=== PATIENT | male | born 1995 | race African-American/Black ===

== ENCOUNTER 2018-01-20 20:54 | Emergency (ER) | payer OTHER ==
[2018-01-20 21:12] LABS: ADD MAN DIFF? NO
[2018-01-20 21:14] LABS: BASO % 1 % (0-3); EOS # 0.4 x10^3/uL (0.0-0.7); EOS % 7 % (0-3); HEMATOCRIT 39.1 % (39.0-53.0); HEMOGLOBIN 12.7 g/dL (13.0-17.5); LYMPH # 1.9 x10^3/uL (1.0-4.8); LYMPH % 37 % (24-48); MEAN CORPUSCULAR HEMOGLOBIN 25 pg (25-35); MEAN CORPUSCULAR HGB CONC 33 g/dL (31-37); MEAN CORPUSCULAR VOLUME 77 fL (79-100); MONO # 0.5 x10^3/uL (0.0-1.1); MONO % 10 % (0-9); NEUT # 2.4 x10^3uL (1.8-7.7); NEUT % 46 % (31-73); PLATELET COUNT 192 x10^3/uL (140-400); RED CELL DISTRIBUTION WIDTH 13.7 % (11.5-14.5); WHITE BLOOD COUNT 5.3 x10^3/uL (4.0-11.0)
[2018-01-20 21:25] LABS: ANION GAP 11 (6-14); BLOOD UREA NITROGEN 24 mg/dL (8-26); BUN/CREATININE RATIO 22 (6-20); CARBON DIOXIDE 26 mmol/L (21-32); CHLORIDE 103 mmol/L (98-107); CREATININE 1.1 mg/dL (0.7-1.3); GFR 101.3; GLUCOSE 102 mg/dL (70-99); POTASSIUM 3.4 mmol/L (3.5-5.1); SODIUM 140 mmol/L (136-145)
[2018-01-20 21:27] LABS: ETHANOL < 10 mg/dL (0-10)
[2018-01-20 21:31] LABS: ALBUMIN 4.2 g/dL (3.4-5.0); ALBUMIN/GLOBULIN RATIO 1.1 (1.0-1.7); ALK PHOS 97 U/L (46-116); ALT (SGPT) 24 U/L (16-63); AST (SGOT) 21 U/L (15-37); TOTAL BILIRUBIN 0.3 mg/dL (0.2-1.0); TOTAL PROTEIN 7.9 g/dL (6.4-8.2)
[2018-01-20 23:08] LABS: BARBITURATES NEG (NEG); BENZODIAZEPINES NEG (NEG); CANNABINOIDS NEG (NEG); COCAINE NEG (NEG); METHADONE NEG (NEG); OPIATES NEG (NEG); PHENCYCLIDINE NEG (NEG)
[2018-01-20 23:09] LABS: AMPHETAMINE/METHAMPHETAMINE NEG (NEG); ETHANOL, URINE NEG (NEG)
== END 2018-01-20 23:45 | disposition home or self-care (01) ==
LOC: ER 20:54
DX: S41.152A Open bite of left upper arm, initial encounter (principal); S09.90XA Unspecified injury of head, initial encounter; F31.9 Bipolar disorder, unspecified; F20.9 Schizophrenia, unspecified; F90.9 Attention-deficit hyperactivity disorder, unspecified type; W50.3XXA Accidental bite by another person, initial encounter; Y93.89 Activity, other specified; Y99.8 Other external cause status; Y92.89 Other specified places as the place of occurrence of the external cause
CPT/HCPCS: 36415; 51701; 70450; 72125; 80053; 80307; 85025; 99285-25; G0480

== ENCOUNTER 2019-08-12 14:30 | Emergency (ER) | payer OTHER ==
[~2019-08-12] VITALS: Ht 180.3 cm; Wt 100.0 kg
[~2019-08-12 14:30] MED LIST: AMOX1TAB61 PO
[2019-08-12] MEDS ORDERED: NEOMY/BACITR/POLYMYXIN OINT PACKET. TP ONE (14:45)
[2019-08-12] MEDS ORDERED: FAMOTIDINE 20 MG/2 ML VIAL IVP ONE (14:45)
[2019-08-12] MEDS ORDERED: IV NORMAL SALINE 1000ML BAG 1,000 ML IV ONE (14:45)
[2019-08-12 14:54] LABS: BASO % 0 % (0-3); EOS % 0 % (0-3); HEMOGLOBIN 13.6 g/dL (13.0-17.5); LYMPH % 13 % (24-48); MEAN CORPUSCULAR HEMOGLOBIN 25 pg (25-35); MEAN CORPUSCULAR HGB CONC 32 g/dL (31-37); MEAN CORPUSCULAR VOLUME 78 fL (79-100); MONO # 0.5 x10^3/uL (0.0-1.1); MONO % 7 % (0-9); NEUT % 79 % (31-73); PLATELET COUNT 215 x10^3/uL (140-400); RED BLOOD COUNT 5.51 x10^6/uL (4.30-5.70); RED CELL DISTRIBUTION WIDTH 14.6 % (11.5-14.5); WHITE BLOOD COUNT 7.6 x10^3/uL (4.0-11.0)
[2019-08-12 15:04] LABS: PROTHROMBIN TIME PATIENT 13.2 SEC (11.7-14.0)
--- NOTE | 2019-08-12 15:05 | PHYS DOC ---
Past Medical History Past Medical History: Asthma, Bipolar, Depression, Schizophrenia, Other Additional Past Medical Histor: ADHD, Suicidal ideation, Hallucintations, Ingestion of foreign objects Past Surgical History: Other Additional Past Surgical Histo: EGD to remove spoon Additional Information: Nonsmoker Alcohol Use: None Drug Use: None Adult General Chief Complaint Chief Complaint: HEAD INJURY/TRAUMA HPI HPI 24-year-old male presents via EMS from [facility] with report that patient swallowed multiple screws from wall outlet and began to hit his head against cell wall prior to arrival at approximately 1330. Patient reports he was trying to harm himself. Reports he hears voices that tell him to harm himself. Reports history of prior ingestion of foreign object approximately 1 year ago to harm himself for which he was seen and treated at . EMS reports medical personnel at correction facility noted patient had a "60 sec" seizure like activity and "spit up some blood". Correctional facility RN reported to EMS that patient is "highly volatile". Review of Systems Review of Systems Constitutional: Denies fever or chills Eyes: Denies redness or eye pain HENT: Reports head contusion and epistaxis Respiratory: Denies cough or shortness of breath Cardiovascular: Denies chest pain or palpitations GI: Denies abdominal pain; reports vomiting Musculoskeletal: Denies back pain or neck pain Integument: Reports head contusion and abrasion Neurologic: Reports headache; denies focal weakness or sensory changes Psychiatric: Reports suicidal ideation and hallucinations Complete systems were reviewed and found to be within normal limits, except as documented in this note. Current Medications Current Medications Current Medications Medications (Trade) Dose Ordered Sig/Gil Start Time Stop Time Status Last Admin Dose Admin Famotidine (Pepcid Vial) 20 mg 1X ONCE 08/12/19 14:45 08/12/19 14:47 DC 08/12/19 15:17 20 MG Neomycin/ Polymyxin/ Bacitracin (Triple Antibiotic Ointment) 1 pkt 1X ONCE 08/12/19 14:45 08/12/19 14:49 DC 08/12/19 15:17 1 PKT Sodium Chloride 1,000 ml @ 1,000 mls/hr 1X ONCE 08/12/19 14:45 08/12/19 15:44 DC 08/12/19 15:17 1,000 MLS/HR Allergies Allergies Allergies Coded Allergies Type Severity Reaction Last Updated Verified No Known Drug Allergies 01/20/18 No Physical Exam Physical Exam Constitutional: Well developed, well nourished, no acute distress, non-toxic appearance HENT: Normocephalic, atraumatic, oropharynx moist, some dried blood noted to right nare, some old blood noted in pharynx Eyes: PERRL, EOMI, conjunctiva normal, no discharge Neck: Normal range of motion, no midline tenderness, supple Cardiovascular: Heart rate normal, regular rhythm Lungs & Thorax: Bilateral breath sounds clear to auscultation, no wheezing Abdomen: Soft, no tenderness, no guarding/rebound tenderness/distention Skin: Warm, dry, no erythema, forehead contusion and abrasion to midline forehead, no laceration Extremities: No tenderness, ROM intact, no edema Neurologic: Alert and oriented X 3, normal motor and sensory functions, no focal deficits noted Psychologic: Affect flat, judgment abnormal, reports suicidal ideation, and auditory hallucinations Current Patient Data Vital Signs Vital Signs Date Time Temp Pulse Resp B/P (MAP) Pulse Ox O2 Delivery O2 Flow Rate FiO2 08/12/19 16:42 84 123/76 (92) 99 Room Air 08/12/19 14:30 99.7 16 99.7 Lab Values Laboratory Tests Test 08/12/19 14:38 08/12/19 16:30 White Blood Count 7.6 x10^3/uL (4.0-11.0) Red Blood Count 5.51 x10^6/uL (4.30-5.70) Hemoglobin 13.6 g/dL (13.0-17.5) Hematocrit 43.0 % (39.0-53.0) Mean Corpuscular Volume 78 fL (79-100) L Mean Corpuscular Hemoglobin 25 pg (25-35) Mean Corpuscular Hemoglobin Concent 32 g/dL (31-37) Red Cell Distribution Width 14.6 % (11.5-14.5) H Platelet Count 215 x10^3/uL (140-400) Neutrophils (%) (Auto) 79 % (31-73) H Lymphocytes (%) (Auto) 13 % (24-48) L Monocytes (%) (Auto) 7 % (0-9) Eosinophils (%) (Auto) 0 % (0-3) Basophils (%) (Auto) 0 % (0-3) Neutrophils # (Auto) 6.0 x10^3/uL (1.8-7.7) Lymphocytes # (Auto) 1.0 x10^3/uL (1.0-4.8) Monocytes # (Auto) 0.5 x10^3/uL (0.0-1.1) Eosinophils # (Auto) 0.0 x10^3/uL (0.0-0.7) Basophils # (Auto) 0.0 x10^3/uL (0.0-0.2) Prothrombin Time 13.2 SEC (11.7-14.0) Prothrombin Time INR 1.0 (0.8-1.1) Activated Partial Thromboplast Time 26 SEC (24-38) Sodium Level 141 mmol/L (136-145) Potassium Level 4.1 mmol/L (3.5-5.1) Chloride Level 101 mmol/L (98-107) Carbon Dioxide Level 26 mmol/L (21-32) Anion Gap 14 (6-14) Blood Urea Nitrogen 9 mg/dL (8-26) Creatinine 1.0 mg/dL (0.7-1.3) Estimated GFR (Cockcroft-Gault) 111.1 BUN/Creatinine Ratio 9 (6-20) Glucose Level 97 mg/dL (70-99) Calcium Level 9.8 mg/dL (8.5-10.1) Magnesium Level 2.1 mg/dL (1.8-2.4) Total Bilirubin 0.4 mg/dL (0.2-1.0) Aspartate Amino Transferase (AST) 25 U/L (15-37) Alanine Aminotransferase (ALT) 24 U/L (16-63) Alkaline Phosphatase 118 U/L (46-116) H Total Protein 7.8 g/dL (6.4-8.2) Albumin 4.4 g/dL (3.4-5.0) Albumin/Globulin Ratio 1.3 (1.0-1.7) Salicylates Level < 2.8 mg/dL (2.8-20.0) L Salicylate Last Dose Date Unknown Salicylate Last Dose Time Unknown Acetaminophen Level < 2 mcg/ml (10-30) L Acetaminophen Last Dose Date Unknown Acetaminophen Last Dose Time Unknown Urine Collection Type Unknown Urine Color Yellow Urine Clarity Clear Urine pH 7.0 Urine Specific [place] 1.010 Urine Protein Negative mg/dL (NEG-TRACE) Urine Glucose (UA) Negative mg/dL (NEG) Urine Ketones (Stick) Negative mg/dL (NEG) Urine Blood Negative (NEG) Urine Nitrite Negative (NEG) Urine Bilirubin Negative (NEG) Urine Urobilinogen Dipstick 0.2 mg/dL (0.2 mg/dL) Urine Leukocyte Esterase Negative (NEG) Urine RBC 0 /HPF (0-2) Urine WBC 0 /HPF (0-4) Urine Bacteria 0 /HPF (0-FEW) Urine Opiates Screen Neg (NEG) Urine Methadone Screen Neg (NEG) Urine Barbiturates Neg (NEG) Urine Phencyclidine Screen Neg (NEG) Urine Amphetamine/Methamphetamine Neg (NEG) Urine Benzodiazepines Screen Neg (NEG) Urine Cocaine Screen Neg (NEG) Urine Cannabinoids Screen Neg (NEG) Urine Ethyl Alcohol Neg (NEG) Laboratory Tests 08/12/19 14:38 Laboratory Tests 08/12/19 14:38 EKG EKG [] Radiology/Procedures Radiology/Procedures PROCEDURE: CT HEAD W/O CONTRAST, CERVICAL SPINE W/O CONTRAST, & MAXILLOFACIAL WO CONTRAST CT head without contrast: Reason for examination: Status post head contusion. Self-harm. Pain. Axial images were obtained through the brain. No contrast was administered. Ventricular systems are symmetric and not dilated. No midline shift is seen. There is no evidence of intracranial hemorrhage, infarct, mass or edema. No abnormalities are seen at the orbits. The paranasal sinuses and mastoid air cells are clear. No acute abnormality seen in the skull. There is a left parietal convexity scalp hematoma. IMPRESSION: No acute intracranial abnormality evident. Scalp hematoma in the left parietal convexly. CT cervical spine without contrast: Helical images were obtained through the cervical spine from skull base through the thoracic apices with no contrast administered. Reconstruction was performed in sagittal and coronal planes. The C1 ring is intact. The odontoid process appears to be intact and normally centered between the lateral masses of C1. The cervical vertebral bodies are normally aligned anteriorly and posteriorly. No acute fracture or subluxation is seen. The posterior elements are intact. The intervertebral discs are maintained. There does appear to be some hypertrophic spurring anteriorly at the C5-6 level. Prevertebral soft tissues are normal. There is no significant spinal stenosis evident. IMPRESSION: No acute abnormality evident in the cervical spine. CT maxillofacial without contrast: Helical images were obtained through the maxillofacial structures with no contrast administered. Reconstruction was performed in sagittal and coronal planes. The paranasal sinuses and mastoid air cells are clear. Nasal bones are intact. Zygomatic arches are intact. The horn of the orbits and paranasal sinuses appear to be intact. There is some minimal mucosal thickening in the medial wall of the right maxillary antrum. The intraorbital structures are intact. No abnormalities of seen at the mandible or at the temporomandibular joints. There is some soft tissue injury in the midline frontal region. IMPRESSION: Soft tissue injury midline in the frontal region. No acute maxillofacial bony abnormalities evident. Small mucosal thickening in the medial wall the right maxillary antrum. Exposure: One or more of the following individualized dose reduction techniques were utilized for this examination: 1. Automated exposure control 2. Adjustment of the mA and/or kV according to patient size 3. Use of iterative reconstruction technique. Electronically signed by: Jany Gr MD (08/12/2019 4:07 PM) [id number] PROCEDURE: ACUTE ABDOMEN SERIES Acute abdominal series with PA chest portable at 1447: Reason for examination: Possibly swallowed screws for self-harm. The heart size is normal. Mediastinum is unremarkable. Lung terrell are clear. No acute bony abnormalities are seen in the chest. In the abdomen, there is no organomegaly. Psoas muscles are symmetric. The bowel gas pattern is nonspecific with no evidence of bowel obstruction. 3-D radiopaque foreign bodies are present in the abdomen consistent with threaded screws. These are likely present within the small intestinal tract. There is no evidence of free air. No abnormal calcifications are present. No acute bony abnormalities are seen. IMPRESSION: No acute cardiopulmonary disease. Nonspecific bowel gas pattern with no evidence of obstruction. 3 radiopaque foreign bodies consistent with screws present in the abdomen and likely within the small intestinal tract. No free air evident. Electronically signed by: Jany Gr MD (08/12/2019 3:06 PM) [id number] Course & Med Decision Making Course & Med Decision Making Pertinent Labs and Imaging studies reviewed. (See chart for details) Patient presents from correctional facility with report of auditory hallucinations that told him to harm himself. Patient reports he ingested several screws from wall outlet and hit his head on the side of his cell. Patient noted to have large hematoma and abrasion to midline upper forehead. Patient neurologically intact. No midline cervical spine tenderness appreciated. Patient does have some dried blood to right nose and some old blood in pharynx. Hx of "vomiting blood" likely from nosebleed. Abdomen non-peritoneal. Patient in handcuffs with [address] head/maxiofacial/cervical spine without acute process. AAS with notation of 3 retained blunt tipped screws in small bowel. No free air noted. Discussed case with Dr. Baltazar (GI). Dr. Baltazar in agreement that unlikely to cause any perforation or obstruction and can be discharged with repeat XR imaging in 1 week. Patient stable for discharge back to correctional facility on psychiatric unit. Discussed findings and plan with patient and long term guards, who acknowledge understanding and agreement. Dragon Disclaimer Dragon Disclaimer This electronic medical record was generated, in whole or in part, using a voice recognition dictation system. Departure Departure Impression: Primary Impression: Suicidal behavior with attempted self-injury Additional Impressions: Hallucination Ingestion of foreign body Head contusion Abrasion Disposition: 01 HOME, SELF-CARE (back to Correction facility) Condition: STABLE Referrals: NO PCP (PCP) DARLENE BALTAZAR MD Patient Instructions: Abrasion, [id number], Facial or Scalp Contusion, [id number], Hallucinations and Delusions, Suicidal Feelings, How to Help Yourself Additional Instructions: RECOMMEND: PLACEMENT TO PSYCHIATRIC UNIT OF CORRECTION FACILITY. PATIENT WILL REQUIRE REPEAT ABDOMINAL XRAY TO CONFIRM 3 METALLIC SCREWS HAVE PASSED Problem Qualifiers Additional Impressions: Ingestion of foreign body Encounter type: initial encounter Qualified Codes: T18.9XXA - Foreign body of alimentary tract, part unspecified, initial encounter Head contusion Encounter type: initial encounter Contusion of head detail: other part of head Qualified Codes: S00.83XA - Contusion of other part of head, initial encounter KEKE BIRCH DO Aug 12, 2019 15:05
[2019-08-12 15:08] LABS: ALBUMIN 4.4 g/dL (3.4-5.0); ALBUMIN/GLOBULIN RATIO 1.3 (1.0-1.7); CALCIUM 9.8 mg/dL (8.5-10.1); GFR 111.1; MAGNESIUM 2.1 mg/dL (1.8-2.4); POTASSIUM 4.1 mmol/L (3.5-5.1); TOTAL BILIRUBIN 0.4 mg/dL (0.2-1.0); TOTAL PROTEIN 7.8 g/dL (6.4-8.2)
--- NOTE | 2019-08-12 15:09 | RAD ---
Acute abdominal series with PA chest portable at 1447: Reason for examination: Possibly swallowed screws for self-harm. The heart size is normal. Mediastinum is unremarkable. Lung terrell are clear. No acute bony abnormalities are seen in the chest. In the abdomen, there is no organomegaly. Psoas muscles are symmetric. The bowel gas pattern is nonspecific with no evidence of bowel obstruction. 3-D radiopaque foreign bodies are present in the abdomen consistent with threaded screws. These are likely present within the small intestinal tract. There is no evidence of free air. No abnormal calcifications are present. No acute bony abnormalities are seen. IMPRESSION: No acute cardiopulmonary disease. Nonspecific bowel gas pattern with no evidence of obstruction. 3 radiopaque foreign bodies consistent with screws present in the abdomen and likely within the small intestinal tract. No free air evident. Electronically signed by: Jany Gr MD (08/12/2019 3:06 PM) [id number]
[2019-08-12 15:12] LABS: ACETAMIN < 2 mcg/ml (10-30); SALIC < 2.8 mg/dL (2.8-20.0)
--- NOTE | 2019-08-12 16:10 | RAD ---
CT head without contrast: Reason for examination: Status post head contusion. Self-harm. Pain. Axial images were obtained through the brain. No contrast was administered. Ventricular systems are symmetric and not dilated. No midline shift is seen. There is no evidence of intracranial hemorrhage, infarct, mass or edema. No abnormalities are seen at the orbits. The paranasal sinuses and mastoid air cells are clear. No acute abnormality seen in the skull. There is a left parietal convexity scalp hematoma. IMPRESSION: No acute intracranial abnormality evident. Scalp hematoma in the left parietal convexly. CT cervical spine without contrast: Helical images were obtained through the cervical spine from skull base through the thoracic apices with no contrast administered. Reconstruction was performed in sagittal and coronal planes. The C1 ring is intact. The odontoid process appears to be intact and normally centered between the lateral masses of C1. The cervical vertebral bodies are normally aligned anteriorly and posteriorly. No acute fracture or subluxation is seen. The posterior elements are intact. The intervertebral discs are maintained. There does appear to be some hypertrophic spurring anteriorly at the C5-6 level. Prevertebral soft tissues are normal. There is no significant spinal stenosis evident. IMPRESSION: No acute abnormality evident in the cervical spine. CT maxillofacial without contrast: Helical images were obtained through the maxillofacial structures with no contrast administered. Reconstruction was performed in sagittal and coronal planes. The paranasal sinuses and mastoid air cells are clear. Nasal bones are intact. Zygomatic arches are intact. The horn of the orbits and paranasal sinuses appear to be intact. There is some minimal mucosal thickening in the medial wall of the right maxillary antrum. The intraorbital structures are intact. No abnormalities of seen at the mandible or at the temporomandibular joints. There is some soft tissue injury in the midline frontal region. IMPRESSION: Soft tissue injury midline in the frontal region. No acute maxillofacial bony abnormalities evident. Small mucosal thickening in the medial wall the right maxillary antrum. Exposure: One or more of the following individualized dose reduction techniques were utilized for this examination: 1. Automated exposure control 2. Adjustment of the mA and/or kV according to patient size 3. Use of iterative reconstruction technique. Electronically signed by: Jany Gr MD (08/12/2019 4:07 PM) [id number]
[2019-08-12 16:42] VITALS: BP 123/76
[2019-08-12 16:45] LABS: BILIRUBIN,URINE NEGATIVE (NEG); COLOR,URINE YELLOW; NITRITE,URINE NEGATIVE (NEG); PROTEIN,URINE NEGATIVE (NEG-TRACE); UROBILINOGEN,URINE 0.2 mg/dL (0.2 mg/dL)
[2019-08-12 16:49] LABS: CLARITY,URINE CLEAR
[2019-08-12 16:50] LABS: BACTERIA,URINE 0 /HPF (0-FEW); RBC,URINE 0 /HPF (0-2); WBC,URINE 0 /HPF (0-4)
[2019-08-12 16:52] LABS: BARBITURATES NEG (NEG); BENZODIAZEPINES NEG (NEG); CANNABINOIDS NEG (NEG); COCAINE NEG (NEG); METHADONE NEG (NEG); OPIATES NEG (NEG); PHENCYCLIDINE NEG (NEG)
[2019-08-12 16:56] LABS: AMPHETAMINE/METHAMPHETAMINE NEG (NEG)
[2019-08-13] MEDS ORDERED: FLUO20CA16 PO (16:53)
[2019-08-13] MEDS ORDERED: OMEP20CA16 PO (16:53)
[2019-08-13] MEDS ORDERED: HALO10TA PO (16:53)
[2019-08-13] MEDS ORDERED: HALO100V IM (16:53)
[2019-08-13] MEDS ORDERED: DOCU-109 PO (16:53)
== END 2019-08-12 17:05 | disposition home or self-care (01) ==
LOC: EEVIPCON 14:30 → ER 14:30
DX: S00.83XA Contusion of other part of head, initial encounter (principal); T18.9XXA Foreign body of alimentary tract, part unspecified, initial encounter; R45.851 Suicidal ideations; R11.10 Vomiting, unspecified; J45.909 Unspecified asthma, uncomplicated; F32.9 Major depressive disorder, single episode, unspecified; F20.9 Schizophrenia, unspecified; Z98.890 Other specified postprocedural states; X83.8XXA Intentional self-harm by other specified means, initial encounter; Y93.89 Activity, other specified; Y92.89 Other specified places as the place of occurrence of the external cause; Y99.8 Other external cause status
CPT/HCPCS: 36415; 70450; 70486; 72125; 74022; 80053; 80307; 80329; 81001; 83735; 85025; 85610; 85730; 96361; 96374; 99285; J3490; J7030; G0480

== ENCOUNTER 2019-08-12 21:17 | Inpatient (IN) | payer OTHER ==
[~2019-08-12] VITALS: Ht 180.3 cm; Wt 91.2 kg
[2019-08-12 21:51] LABS: BASO % 0 % (0-3); EOS % 1 % (0-3); HEMOGLOBIN 12.7 g/dL (13.0-17.5); LYMPH # 1.6 x10^3/uL (1.0-4.8); LYMPH % 19 % (24-48); MEAN CORPUSCULAR HEMOGLOBIN 25 pg (25-35); MEAN CORPUSCULAR HGB CONC 32 g/dL (31-37); MEAN CORPUSCULAR VOLUME 78 fL (79-100); MONO # 0.7 x10^3/uL (0.0-1.1); MONO % 9 % (0-9); NEUT # 5.8 x10^3/uL (1.8-7.7); NEUT % 71 % (31-73); PLATELET COUNT 211 x10^3/uL (140-400); RED BLOOD COUNT 5.15 x10^6/uL (4.30-5.70); RED CELL DISTRIBUTION WIDTH 14.9 % (11.5-14.5); WHITE BLOOD COUNT 8.1 x10^3/uL (4.0-11.0)
[2019-08-12 22:00] LABS: PROTHROMBIN TIME PATIENT 13.9 SEC (11.7-14.0)
[2019-08-12] MEDS ORDERED: IV NORMAL SALINE 1000ML BAG 1,000 ML IV SCH (22:00)
[2019-08-12 22:01] LABS: CALCIUM 8.9 mg/dL (8.5-10.1); CREATININE 0.9 mg/dL (0.7-1.3); GFR 125.4; POTASSIUM 3.5 mmol/L (3.5-5.1)
--- NOTE | 2019-08-12 22:06 | PHYS DOC ---
Past Medical History Past Medical History: Asthma, Bipolar, Depression, Schizophrenia, Other Additional Past Medical Histor: ADHD, Suicidal ideation, Hallucintations, Ingestion of foreign objects Past Surgical History: Other Additional Past Surgical Histo: EGD to remove spoon Alcohol Use: None Drug Use: None Adult General Chief Complaint Chief Complaint: ABDOMINAL PAIN HPI HPI Patient is a 24 year old incarcerated male with history of his of schizophrenia, ADHD, asthma, bipolar, suicidal ideation and attempt, ingestion of foreign bodies who presents per EMS with with complaining of vomiting blood. Patient stated he swallowed 3 small metallic school at 1300 today and was seen in this emergency room and was discharged to police custody. Patient complaining of 6 episodes of vomiting dark blood and right upper quadrant abdominal pain. Patient states his last bowel movement was yesterday and denies dizziness, chest pain, shortness of breath. Review of Systems Review of Systems Constitutional: Denies fever or chills [] Eyes: Denies change in visual acuity, redness, or eye pain [] HENT: Denies nasal congestion or sore throat [] Respiratory: Denies cough or shortness of breath [] Cardiovascular: No additional information not addressed in HPI [] GI: Reports abdominal pain, nausea, vomiting, denies bloody stools or diarrhea [] : Denies dysuria or hematuria [] Musculoskeletal: Denies back pain or joint pain [] Integument: Denies rash or skin lesions [] Neurologic: Denies headache, focal weakness or sensory changes [] Endocrine: Denies polyuria or polydipsia [] All other systems were reviewed and found to be within normal limits, except as documented in this note. Current Medications Current Medications Current Medications Medications (Trade) Dose Ordered Sig/Gil Start Time Stop Time Status Last Admin Dose Admin Ondansetron HCl (Zofran) 4 mg PRN Q8HRS PRN 08/12/19 22:15 08/13/19 06:00 Sodium Chloride 1,000 ml @ 125 mls/hr Q8H 08/12/19 22:30 08/13/19 22:29 Allergies Allergies Allergies Coded Allergies Type Severity Reaction Last Updated Verified No Known Drug Allergies 01/20/18 No Physical Exam Physical Exam Constitutional: No acute distress, non-toxic appearance. [] HENT: Normocephalic, forehead old wound related to banging his head as a chronic problem Eyes: PERRLA, EOMI, conjunctiva normal, no discharge. [] Neck: Normal range of motion, no tenderness, supple, no stridor. [] Cardiovascular:Heart rate regular rhythm, no murmur [] Lungs & Thorax: Bilateral breath sounds clear to auscultation [] Abdomen: Bowel sounds normal, soft, no tenderness, no masses, no pulsatile masses. [] Skin: Warm, dry, no erythema, no rash. [] Back: No tenderness, no CVA tenderness. [] Extremities: No tenderness, no cyanosis, no clubbing, ROM intact, no edema. [] Neurologic: Alert and oriented X 3, normal motor function, normal sensory function, no focal deficits noted. [] Psychologic: Affect normal. Denies suicidal and homicidal ideation Current Patient Data Lab Values Laboratory Tests Test 08/12/19 21:35 White Blood Count 8.1 x10^3/uL (4.0-11.0) Red Blood Count 5.15 x10^6/uL (4.30-5.70) Hemoglobin 12.7 g/dL (13.0-17.5) L Hematocrit 40.0 % (39.0-53.0) Mean Corpuscular Volume 78 fL (79-100) L Mean Corpuscular Hemoglobin 25 pg (25-35) Mean Corpuscular Hemoglobin Concent 32 g/dL (31-37) Red Cell Distribution Width 14.9 % (11.5-14.5) H Platelet Count 211 x10^3/uL (140-400) Neutrophils (%) (Auto) 71 % (31-73) Lymphocytes (%) (Auto) 19 % (24-48) L Monocytes (%) (Auto) 9 % (0-9) Eosinophils (%) (Auto) 1 % (0-3) Basophils (%) (Auto) 0 % (0-3) Neutrophils # (Auto) 5.8 x10^3/uL (1.8-7.7) Lymphocytes # (Auto) 1.6 x10^3/uL (1.0-4.8) Monocytes # (Auto) 0.7 x10^3/uL (0.0-1.1) Eosinophils # (Auto) 0.0 x10^3/uL (0.0-0.7) Basophils # (Auto) 0.0 x10^3/uL (0.0-0.2) Prothrombin Time 13.9 SEC (11.7-14.0) Prothrombin Time INR 1.1 (0.8-1.1) Activated Partial Thromboplast Time 27 SEC (24-38) Sodium Level 142 mmol/L (136-145) Potassium Level 3.5 mmol/L (3.5-5.1) Chloride Level 104 mmol/L (98-107) Carbon Dioxide Level 27 mmol/L (21-32) Anion Gap 11 (6-14) Blood Urea Nitrogen 7 mg/dL (8-26) L Creatinine 0.9 mg/dL (0.7-1.3) Estimated GFR (Cockcroft-Gault) 125.4 BUN/Creatinine Ratio 8 (6-20) Glucose Level 103 mg/dL (70-99) H Calcium Level 8.9 mg/dL (8.5-10.1) Total Bilirubin 0.4 mg/dL (0.2-1.0) Aspartate Amino Transferase (AST) 22 U/L (15-37) Alanine Aminotransferase (ALT) 21 U/L (16-63) Alkaline Phosphatase 105 U/L (46-116) Total Protein 7.4 g/dL (6.4-8.2) Albumin 3.8 g/dL (3.4-5.0) Albumin/Globulin Ratio 1.1 (1.0-1.7) Lipase 105 U/L (73-393) Laboratory Tests 08/12/19 21:35 Laboratory Tests 08/12/19 21:35 EKG EKG [] Radiology/Procedures Radiology/Procedures [] Course & Med Decision Making Course & Med Decision Making Pertinent Labs reviewed. (See chart for details) Evaluation of patient in ER showed 24-year-old incarcerated male patient presented for the second time to emergency room after swallowed to be a small metallic screw and complaining of vomiting blood. Patient had unremarkable physical exam. Labs showed a small drop of hemoglobin from 13.6 to12.7. Patient did not have hematemesis in ER. On-call GI Dr. Maximiliano Giron was consulted at 2150 and recommended to admit patient and obtain daily x-ray of abdomen and keep patient NPO.Patient requiring admission for further evaluation and treatment. Discussed with Dr. Villar who is in agreement with admission. Discussed findings and plan with patient and family, who acknowledge understanding and agreement. Dragon Disclaimer Dragon Disclaimer This electronic medical record was generated, in whole or in part, using a voice recognition dictation system. Departure Departure Impression: Primary Impression: Swallowed foreign body Additional Impression: Nausea and vomiting Disposition: 09 ADMITTED INPATIENT (at 2205) Admitting Physician: DAGOBERTO (Dr. Villar accepted admission at 2219) Condition: STABLE Referrals: NO PCP (PCP) Problem Qualifiers Primary Impression: Swallowed foreign body Encounter type: initial encounter Qualified Codes: T18.9XXA - Foreign body of alimentary tract, part unspecified, initial encounter Additional Impression: Nausea and vomiting Vomiting type: unspecified Vomiting Intractability: non-intractable Qualified Codes: R11.2 - Nausea with vomiting, unspecified TRISHA ROSAS MD Aug 12, 2019 22:06
[2019-08-12 22:08] LABS: ALBUMIN 3.8 g/dL (3.4-5.0); ALBUMIN/GLOBULIN RATIO 1.1 (1.0-1.7); TOTAL BILIRUBIN 0.4 mg/dL (0.2-1.0); TOTAL PROTEIN 7.4 g/dL (6.4-8.2)
[2019-08-12] MEDS ORDERED: ONDANSETRON PF 4 MG/2 ML VIAL. IV PRN (22:15)
[2019-08-12] MEDS: IV NORMAL SALINE 1000ML BAG 1,000 ML IV SCH (23:45)
[2019-08-13 07:20] VITALS: BP 135/88
--- NOTE | 2019-08-13 09:40 | PDOC2 ---
GI CONSULT Reason For Consult: swallowed foreign body HPI: HPI: 24 y/o inmate to ER twice yesterday. Swallowed three screws because he was trying to kill himself, no longer feels this way. Imaging shows screws in small bowel. He reports he vomited red blood yesterday in the ER, then want back to facility and ate. First says no recurrent vomiting or bleeding, then says vomited red blood again after eating yesterday. Normal stool yesterday. Intermittent sharp RUQ pain. H/o GERD on omeprazole QD. Previous EGD @ [facility] last year to remove a plastic spork. Denies dysphagia, diarrhea, constipation, hematochezia, melena, change in appetite, and weight loss. No colonoscopy. No GB, liver, pancreas, or PUD history. Per nurse - guards told her he vomits a lot. No vomiting or bleeding since admission. PMH: PMH: per pt and chart: GERD, bipolar, depression, schizophrenia, ADHD, hallucinations, wrist and ankle fractures ROS: GEN: Denies fevers, chills, sweats HEENT: Denies blurred vision, sore throat CV: Denies chest pain RESP: Denies shortness of air, cough GI: Per HPI : Denies hematuria, dysuria ENDO: Denies weight changes NEURO: Denies confusion, dizziness MSK: Denies weakness, joint pain/swelling SKIN: Denies jaundice, pruritus Vitals: Vitals: Vital Signs Date Time Temp Pulse Resp B/P (MAP) Pulse Ox O2 Delivery O2 Flow Rate FiO2 08/13/19 09:30 Room Air 08/13/19 07:20 98.1 88 18 135/88 (104) 98 98.1 Labs: Labs: Laboratory Tests Test 08/12/19 21:35 White Blood Count 8.1 x10^3/uL (4.0-11.0) Red Blood Count 5.15 x10^6/uL (4.30-5.70) Hemoglobin 12.7 g/dL (13.0-17.5) Hematocrit 40.0 % (39.0-53.0) Mean Corpuscular Volume 78 fL (79-100) Mean Corpuscular Hemoglobin 25 pg (25-35) Mean Corpuscular Hemoglobin Concent 32 g/dL (31-37) Red Cell Distribution Width 14.9 % (11.5-14.5) Platelet Count 211 x10^3/uL (140-400) Neutrophils (%) (Auto) 71 % (31-73) Lymphocytes (%) (Auto) 19 % (24-48) Monocytes (%) (Auto) 9 % (0-9) Eosinophils (%) (Auto) 1 % (0-3) Basophils (%) (Auto) 0 % (0-3) Neutrophils # (Auto) 5.8 x10^3/uL (1.8-7.7) Lymphocytes # (Auto) 1.6 x10^3/uL (1.0-4.8) Monocytes # (Auto) 0.7 x10^3/uL (0.0-1.1) Eosinophils # (Auto) 0.0 x10^3/uL (0.0-0.7) Basophils # (Auto) 0.0 x10^3/uL (0.0-0.2) Prothrombin Time 13.9 SEC (11.7-14.0) Prothromb Time International Ratio 1.1 (0.8-1.1) Activated Partial Thromboplast Time 27 SEC (24-38) Sodium Level 142 mmol/L (136-145) Potassium Level 3.5 mmol/L (3.5-5.1) Chloride Level 104 mmol/L (98-107) Carbon Dioxide Level 27 mmol/L (21-32) Anion Gap 11 (6-14) Blood Urea Nitrogen 7 mg/dL (8-26) Creatinine 0.9 mg/dL (0.7-1.3) Estimated GFR (Cockcroft-Gault) 125.4 BUN/Creatinine Ratio 8 (6-20) Glucose Level 103 mg/dL (70-99) Calcium Level 8.9 mg/dL (8.5-10.1) Total Bilirubin 0.4 mg/dL (0.2-1.0) Aspartate Amino Transf (AST/SGOT) 22 U/L (15-37) Alanine Aminotransferase (ALT/SGPT) 21 U/L (16-63) Alkaline Phosphatase 105 U/L (46-116) Total Protein 7.4 g/dL (6.4-8.2) Albumin 3.8 g/dL (3.4-5.0) Albumin/Globulin Ratio 1.1 (1.0-1.7) Lipase 105 U/L (73-393) Allergies: Coded Allergies: No Known Drug Allergies (Unverified , 01/20/18) Medications: Current Medications Medications (Trade) Dose Ordered Sig/Gil Route PRN Reason Start Time Stop Time Status Last Admin Dose Admin Sodium Chloride 1,000 ml @ 1,000 mls/hr Q1H IV 08/12/19 22:00 08/12/19 22:59 DC 08/12/19 21:57 Sodium Chloride 1,000 ml @ 125 mls/hr Q8H IV 08/12/19 22:30 08/13/19 22:29 08/12/19 23:45 Imaging: Imaging: [facility] 08/12 IMPRESSION: No acute cardiopulmonary disease. Nonspecific bowel gas pattern with no evidence of obstruction. 3 radiopaque foreign bodies consistent with screws present in the abdomen and likely within the small intestinal tract. No free air evident. PE: GEN: NAD HEENT: Atraumatic, PERRL LUNGS: CTAB HEART: RRR ABD: NABS, S/ND/NT EXTREMITY: No edema SKIN: bandage on forehead NEURO/PSYCH: A & O 3 A/P: A/P: Swallowed foreign body, psych issues Hematemesis - slight Hgb drift when checked for second time yesterday - 12.7 - stable compared to labs in 2018, normal BUN (7) Microcytosis - chronic GERD CRC screen - average risk -- Screws in small bowel on yesterday's x-ray, [facility] pending today. D/w Dr. Giron - will ask surgery to follow. Monitor for bleeding, add PPI (IV for now), check iron studies. EDUARDO PARKER Aug 13, 2019 09:40
[2019-08-13] MEDS: PANTOPRAZOLE IV PUSH 40 MG VIAL. IVP SCH (10:02)
[2019-08-13] MEDS: IV NORMAL SALINE 1000ML BAG 1,000 ML IV SCH ×2 (10:02→16:22)
--- NOTE | 2019-08-13 10:50 | NUR ---
assumed care at 0930 from nurse on 5th floor (khoi). Dr. Orozco at bedside.when asked why he is here "i tried to kill myself" method--i swallowed 3 screws. " admission history completed. he is npo at this time. states he has pain in the epigastric area that radiated to mid abdominal area. they stated he voided prior to my arrival. he stated that he last vomited blood in the er earlier this am. iv fluids started at 125cc in the left antecubital area.
[2019-08-13 11:12] VITALS: BP 119/67
--- NOTE | 2019-08-13 11:54 | NUR ---
resting in bed. rubs epigastric and LUQ . states he is cramping. iv fluids continue.
--- NOTE | 2019-08-13 12:34 | NUR ---
resting in bed watching television; no longer rubbing abdomen
--- NOTE | 2019-08-13 12:44 | PDOC2 ---
CONSULT Date of Consult Date of Consult DATE: 08/13/19 TIME: 12:37 Reason for Consult Reason for Consult: ingestion of FB Referring Physician Referring Physician: Dr Giron Identification/Chief Complaint Chief Complaint swallowed screws Source Source: Chart review, Patient History of Present Illness Reason for Visit: Inmate brought in after Swallowed 3 screens, seen in ER twice, apparently returned when vomited blood. Report some pain to abdomen, currently no stool Past Medical History Pulmonary: Asthma Psych: Bipolar, Depression Past Surgical History Past Surgical History: No pertinent history Family History Family History: Other (noncontributory to current illness ) Social History No ALCOHOL: none Drugs: None Current Problem List Problem List Problems Medical Problems: (1) Nausea and vomiting Status: Acute Current Medications Current Medications Current Medications Sodium Chloride 1,000 ml @ 1,000 mls/hr Q1H IV Last administered on 08/12/19at 21:57; Start 08/12/19 at 22:00; Stop 08/12/19 at 22:59; Status DC Ondansetron HCl (Zofran) 4 mg PRN Q8HRS PRN IV NAUSEA/VOMITING 1ST CHOICE; St art 08/12/19 at 22:15; Stop 08/13/19 at 06:00; Status DC Sodium Chloride 1,000 ml @ 125 mls/hr Q8H IV Last administered on 08/13/19at 10:02; Start 08/12/19 at 22:30; Stop 08/13/19 at 22:29 Pantoprazole Sodium (PROTONIX VIAL for IV PUSH) 40 mg DAILYAC IVP Last administered on 08/13/19at 10:02; Start 08/13/19 at 10:00 Active Scripts Active Augmentin 875-125 Tablet (Amoxicillin/Potassium Clav) 1 Each Tablet 1 Tab PO BID Allergies Allergies: Coded Allergies: adhesive (Verified Allergy, Intermediate, Rash, 08/13/19) ROS General: No: Chills, Other (fevers ) PSYCHOLOGICAL ROS: YES: Anxiety, Depression Eyes: No Blurry vision, No Double vision HEENT: No: Heacaches, Sore Throat Hematological and Lymphatic: YES: Bleeding Problems; No: Blood Clots Respiratory: No: Cough, Shortness of breath Cardiovascular: No Chest Pain, No Palpitations Gastrointestinal: Yes Other (see hpi) Genitourinary: No Dysuria, No Hematuria Musculoskeletal: No Joint Pain Neurological: No Impaired Coord/balance, No Numbness/Tingling Skin: Yes Other (head wound ) Physical Exam General: Alert, Oriented X3, Cooperative HEENT: PERRLA, Other (dressing wound to forehead ) Lungs: Clear to auscultation, Normal air movement Heart: Regular rate, Normal S1, Normal S2 Abdomen: Soft, Other (epigastric TTP, ND, no peritoneal signs ) Extremities: No clubbing, No cyanosis Skin: No rashes, No breakdown Neuro: Normal gait, Normal speech Psych/Mental Status: Mental status NL, Mood NL MUSCULOSKELETAL: No deformity, No swelling Vitals VITALS Vital Signs Date Time Temp Pulse Resp B/P (MAP) Pulse Ox O2 Delivery O2 Flow Rate FiO2 08/13/19 11:12 97.8 76 16 119/67 (84) 92 Room Air 97.8 Labs Labs Laboratory Tests Test 08/12/19 21:35 08/13/19 11:25 White Blood Count 8.1 x10^3/uL (4.0-11.0) Red Blood Count 5.15 x10^6/uL (4.30-5.70) Hemoglobin 12.7 g/dL (13.0-17.5) Hematocrit 40.0 % (39.0-53.0) Mean Corpuscular Volume 78 fL (79-100) Mean Corpuscular Hemoglobin 25 pg (25-35) Mean Corpuscular Hemoglobin Concent 32 g/dL (31-37) Red Cell Distribution Width 14.9 % (11.5-14.5) Platelet Count 211 x10^3/uL (140-400) Neutrophils (%) (Auto) 71 % (31-73) Lymphocytes (%) (Auto) 19 % (24-48) Monocytes (%) (Auto) 9 % (0-9) Eosinophils (%) (Auto) 1 % (0-3) Basophils (%) (Auto) 0 % (0-3) Neutrophils # (Auto) 5.8 x10^3/uL (1.8-7.7) Lymphocytes # (Auto) 1.6 x10^3/uL (1.0-4.8) Monocytes # (Auto) 0.7 x10^3/uL (0.0-1.1) Eosinophils # (Auto) 0.0 x10^3/uL (0.0-0.7) Basophils # (Auto) 0.0 x10^3/uL (0.0-0.2) Prothrombin Time 13.9 SEC (11.7-14.0) Prothromb Time International Ratio 1.1 (0.8-1.1) Activated Partial Thromboplast Time 27 SEC (24-38) Sodium Level 142 mmol/L (136-145) Potassium Level 3.5 mmol/L (3.5-5.1) Chloride Level 104 mmol/L (98-107) Carbon Dioxide Level 27 mmol/L (21-32) Anion Gap 11 (6-14) Blood Urea Nitrogen 7 mg/dL (8-26) Creatinine 0.9 mg/dL (0.7-1.3) Estimated GFR (Cockcroft-Gault) 125.4 BUN/Creatinine Ratio 8 (6-20) Glucose Level 103 mg/dL (70-99) Calcium Level 8.9 mg/dL (8.5-10.1) Total Bilirubin 0.4 mg/dL (0.2-1.0) Aspartate Amino Transf (AST/SGOT) 22 U/L (15-37) Alanine Aminotransferase (ALT/SGPT) 21 U/L (16-63) Alkaline Phosphatase 105 U/L (46-116) Total Protein 7.4 g/dL (6.4-8.2) Albumin 3.8 g/dL (3.4-5.0) Albumin/Globulin Ratio 1.1 (1.0-1.7) Lipase 105 U/L (73-393) Iron Level 83 ug/dL (65-175) Total Iron Binding Capacity 259 ug/dL (250-450) Iron Saturation 32 % (15-34) Laboratory Tests Test 08/12/19 21:35 08/13/19 11:25 White Blood Count 8.1 x10^3/uL (4.0-11.0) Red Blood Count 5.15 x10^6/uL (4.30-5.70) Hemoglobin 12.7 g/dL (13.0-17.5) Hematocrit 40.0 % (39.0-53.0) Mean Corpuscular Volume 78 fL (79-100) Mean Corpuscular Hemoglobin 25 pg (25-35) Mean Corpuscular Hemoglobin Concent 32 g/dL (31-37) Red Cell Distribution Width 14.9 % (11.5-14.5) Platelet Count 211 x10^3/uL (140-400) Neutrophils (%) (Auto) 71 % (31-73) Lymphocytes (%) (Auto) 19 % (24-48) Monocytes (%) (Auto) 9 % (0-9) Eosinophils (%) (Auto) 1 % (0-3) Basophils (%) (Auto) 0 % (0-3) Neutrophils # (Auto) 5.8 x10^3/uL (1.8-7.7) Lymphocytes # (Auto) 1.6 x10^3/uL (1.0-4.8) Monocytes # (Auto) 0.7 x10^3/uL (0.0-1.1) Eosinophils # (Auto) 0.0 x10^3/uL (0.0-0.7) Basophils # (Auto) 0.0 x10^3/uL (0.0-0.2) Prothrombin Time 13.9 SEC (11.7-14.0) Prothromb Time International Ratio 1.1 (0.8-1.1) Activated Partial Thromboplast Time 27 SEC (24-38) Sodium Level 142 mmol/L (136-145) Potassium Level 3.5 mmol/L (3.5-5.1) Chloride Level 104 mmol/L (98-107) Carbon Dioxide Level 27 mmol/L (21-32) Anion Gap 11 (6-14) Blood Urea Nitrogen 7 mg/dL (8-26) Creatinine 0.9 mg/dL (0.7-1.3) Estimated GFR (Cockcroft-Gault) 125.4 BUN/Creatinine Ratio 8 (6-20) Glucose Level 103 mg/dL (70-99) Calcium Level 8.9 mg/dL (8.5-10.1) Total Bilirubin 0.4 mg/dL (0.2-1.0) Aspartate Amino Transf (AST/SGOT) 22 U/L (15-37) Alanine Aminotransferase (ALT/SGPT) 21 U/L (16-63) Alkaline Phosphatase 105 U/L (46-116) Total Protein 7.4 g/dL (6.4-8.2) Albumin 3.8 g/dL (3.4-5.0) Albumin/Globulin Ratio 1.1 (1.0-1.7) Lipase 105 U/L (73-393) Iron Level 83 ug/dL (65-175) Total Iron Binding Capacity 259 ug/dL (250-450) Iron Saturation 32 % (15-34) Assessment/Plan Assessment/Plan FB ingestion no surgical indications xray pending await to pass in stool JULIANA CASTREJON APRN Aug 13, 2019 12:44
--- NOTE | 2019-08-13 13:43 | PDOC1 ---
History and Physical Date of Admission Date of Admission DATE: 08/13/19 TIME: 13:21 Identification/Chief Complaint Chief Complaint swallowing 3 screws in attempted suicide Problems: (1) Swallowed foreign body (2) Nausea and vomiting Source Source: Chart review, Patient History of Present Illness History of Present Illness 24 y/o inmate who came to ED twice yesterday after swallowing three screws because he was trying to commit suicide, currently no plans to harm himself. review of imaging shows screws in small bowel. he reportedly vomited red blood yesterday in the ER, then want back to facility and ate. First says no recurrent vomiting or bleeding, then says vomited red blood again after eating yesterday. denies blood in stool. hx of GERD on PPI. had endoscopy at last year to remove pastic fork. no dysphagia, diarr, melena. no weight loss. no vomiting or bleeding since admission. Past Medical History Pulmonary: Asthma Psych: Bipolar, Depression Past Surgical History Past Surgical History: No pertinent history Family History Family History: Other (noncontributory to current illness ) Social History Smoke: No ALCOHOL: none Drugs: None Current Problem List Problem List Problems Medical Problems: (1) Nausea and vomiting Status: Acute Current Medications Current Medications Current Medications Sodium Chloride 1,000 ml @ 1,000 mls/hr Q1H IV Last administered on 08/12/19at 21:57; Start 08/12/19 at 22:00; Stop 08/12/19 at 22:59; Status DC Ondansetron HCl (Zofran) 4 mg PRN Q8HRS PRN IV NAUSEA/VOMITING 1ST CHOICE; Start 08/12/19 at 22:15; Stop 08/13/19 at 06:00; Status DC Sodium Chloride 1,000 ml @ 125 mls/hr Q8H IV Last administered on 08/13/19at 10:02; Start 08/12/19 at 22:30; Stop 08/13/19 at 22:29 Pantoprazole Sodium (PROTONIX VIAL for IV PUSH) 40 mg DAILYAC IVP Last administered on 08/13/19at 10:02; Start 08/13/19 at 10:00 Active Scripts Active Augmentin 875-125 Tablet (Amoxicillin/Potassium Clav) 1 Each Tablet 1 Tab PO BID Allergies Allergies: Coded Allergies: adhesive (Verified Allergy, Intermediate, Rash, 08/13/19) ROS Review of System CONSTITUTIONAL: No fever or chills EYES: No recent changes SKIN: No rash or itching CARDIOVASCULAR: No chest pain, syncope, palpitations, or edema RESPIRATORY: No SOB or cough GASTROINTESTINAL: No nausea, vomiting or abdominal pain NEUROLOGICAL: No headaches or weakness ENDOCRINE: No cold or heat intolerance GENITOURINARY: No urgency or frequency of urination MUSCULOSKELETAL: No back pain or joint pain LYMPHATICS: No enlarged lymph nodes PSYCHIATRIC: No anxiety or depression Physical Exam Physical Exam GENERAL: No apparent distress. Alert and oriented. HEENT: Head normocephalic, atraumatic. NECK: Supple LUNGS: Clear to auscultation. HEART: RRR, S1, S2 present, pulses intact ABDOMEN: Soft, positive bowel sounds. EXTREMITIES: No cyanosis or edema. NEUROLOGIC: Normal speech, normal tone PSYCHIATRIC: Normal affect, normal mood. SKIN: No ulceration. Vitals Vitals Vital Signs Date Time Temp Pulse Resp B/P (MAP) Pulse Ox O2 Delivery O2 Flow Rate FiO2 08/13/19 11:12 97.8 76 16 119/67 (84) 92 Room Air 97.8 Labs Labs Laboratory Tests Test 08/12/19 21:35 08/13/19 11:25 White Blood Count 8.1 x10^3/uL (4.0-11.0) Red Blood Count 5.15 x10^6/uL (4.30-5.70) Hemoglobin 12.7 g/dL (13.0-17.5) Hematocrit 40.0 % (39.0-53.0) Mean Corpuscular Volume 78 fL (79-100) Mean Corpuscular Hemoglobin 25 pg (25-35) Mean Corpuscular Hemoglobin Concent 32 g/dL (31-37) Red Cell Distribution Width 14.9 % (11.5-14.5) Platelet Count 211 x10^3/uL (140-400) Neutrophils (%) (Auto) 71 % (31-73) Lymphocytes (%) (Auto) 19 % (24-48) Monocytes (%) (Auto) 9 % (0-9) Eosinophils (%) (Auto) 1 % (0-3) Basophils (%) (Auto) 0 % (0-3) Neutrophils # (Auto) 5.8 x10^3/uL (1.8-7.7) Lymphocytes # (Auto) 1.6 x10^3/uL (1.0-4.8) Monocytes # (Auto) 0.7 x10^3/uL (0.0-1.1) Eosinophils # (Auto) 0.0 x10^3/uL (0.0-0.7) Basophils # (Auto) 0.0 x10^3/uL (0.0-0.2) Prothrombin Time 13.9 SEC (11.7-14.0) Prothromb Time International Ratio 1.1 (0.8-1.1) Activated Partial Thromboplast Time 27 SEC (24-38) Sodium Level 142 mmol/L (136-145) Potassium Level 3.5 mmol/L (3.5-5.1) Chloride Level 104 mmol/L (98-107) Carbon Dioxide Level 27 mmol/L (21-32) Anion Gap 11 (6-14) Blood Urea Nitrogen 7 mg/dL (8-26) Creatinine 0.9 mg/dL (0.7-1.3) Estimated GFR (Cockcroft-Gault) 125.4 BUN/Creatinine Ratio 8 (6-20) Glucose Level 103 mg/dL (70-99) Calcium Level 8.9 mg/dL (8.5-10.1) Total Bilirubin 0.4 mg/dL (0.2-1.0) Aspartate Amino Transf (AST/SGOT) 22 U/L (15-37) Alanine Aminotransferase (ALT/SGPT) 21 U/L (16-63) Alkaline Phosphatase 105 U/L (46-116) Total Protein 7.4 g/dL (6.4-8.2) Albumin 3.8 g/dL (3.4-5.0) Albumin/Globulin Ratio 1.1 (1.0-1.7) Lipase 105 U/L (73-393) Iron Level 83 ug/dL (65-175) Total Iron Binding Capacity 259 ug/dL (250-450) Iron Saturation 32 % (15-34) Laboratory Tests Test 08/12/19 21:35 08/13/19 11:25 White Blood Count 8.1 x10^3/uL (4.0-11.0) Red Blood Count 5.15 x10^6/uL (4.30-5.70) Hemoglobin 12.7 g/dL (13.0-17.5) Hematocrit 40.0 % (39.0-53.0) Mean Corpuscular Volume 78 fL (79-100) Mean Corpuscular Hemoglobin 25 pg (25-35) Mean Corpuscular Hemoglobin Concent 32 g/dL (31-37) Red Cell Distribution Width 14.9 % (11.5-14.5) Platelet Count 211 x10^3/uL (140-400) Neutrophils (%) (Auto) 71 % (31-73) Lymphocytes (%) (Auto) 19 % (24-48) Monocytes (%) (Auto) 9 % (0-9) Eosinophils (%) (Auto) 1 % (0-3) Basophils (%) (Auto) 0 % (0-3) Neutrophils # (Auto) 5.8 x10^3/uL (1.8-7.7) Lymphocytes # (Auto) 1.6 x10^3/uL (1.0-4.8) Monocytes # (Auto) 0.7 x10^3/uL (0.0-1.1) Eosinophils # (Auto) 0.0 x10^3/uL (0.0-0.7) Basophils # (Auto) 0.0 x10^3/uL (0.0-0.2) Prothrombin Time 13.9 SEC (11.7-14.0) Prothromb Time International Ratio 1.1 (0.8-1.1) Activated Partial Thromboplast Time 27 SEC (24-38) Sodium Level 142 mmol/L (136-145) Potassium Level 3.5 mmol/L (3.5-5.1) Chloride Level 104 mmol/L (98-107) Carbon Dioxide Level 27 mmol/L (21-32) Anion Gap 11 (6-14) Blood Urea Nitrogen 7 mg/dL (8-26) Creatinine 0.9 mg/dL (0.7-1.3) Estimated GFR (Cockcroft-Gault) 125.4 BUN/Creatinine Ratio 8 (6-20) Glucose Level 103 mg/dL (70-99) Calcium Level 8.9 mg/dL (8.5-10.1) Total Bilirubin 0.4 mg/dL (0.2-1.0) Aspartate Amino Transf (AST/SGOT) 22 U/L (15-37) Alanine Aminotransferase (ALT/SGPT) 21 U/L (16-63) Alkaline Phosphatase 105 U/L (46-116) Total Protein 7.4 g/dL (6.4-8.2) Albumin 3.8 g/dL (3.4-5.0) Albumin/Globulin Ratio 1.1 (1.0-1.7) Lipase 105 U/L (73-393) Iron Level 83 ug/dL (65-175) Total Iron Binding Capacity 259 ug/dL (250-450) Iron Saturation 32 % (15-34) VTE Prophylaxis Ordered VTE Prophylaxis Devices: Contraindicated (hemetemesis) VTE Pharmacological Prophylaxi: Yes Assessment/Plan Assessment/Plan assessment Intentional foreign body ingestion SI Hematemesis Microcyic Anemia GERD plan Screws in small bowel from initial xray, follow kub today GI consult no indication for colo check iron studies. gen sx consult anticipate dc ethel if improved Problem Qualifiers (1) Swallowed foreign body: Encounter type: initial encounter Qualified Codes: T18.9XXA - Foreign body of alimentary tract, part unspecified, initial encounter (2) Nausea and vomiting: Vomiting type: unspecified Vomiting Intractability: non-intractable Qualified Codes: R11.2 - Nausea with vomiting, unspecified VERONICA HANCOCK MD Aug 13, 2019 13:43
--- NOTE | 2019-08-13 14:15 | NUR ---
rests in bed. voided 650 cc clear yellow urine. iv continues at 125cc hr. remains npo. guard exchange.
[2019-08-13 15:00] VITALS: BP 124/78
--- NOTE | 2019-08-13 15:23 | NUR ---
resting in bed kub completed. remains npo
--- NOTE | 2019-08-13 16:49 | RAD ---
AP abdomen radiograph 08/13/2019 CLINICAL HISTORY: Recently ingested foreign bodies. An AP supine portable digital radiograph abdomen/pelvis was obtained. Comparison study is dated 08/12/2019. Two screws overlie the distal sigmoid colon/rectum. The third screw overlies the descending colon. No additional foreign body is seen. The abdominal bowel gas pattern is nonobstructive. The osseous structures are unchanged. IMPRESSION: The ingested screws are now seen in the region of the ascending colon and the distal sigmoid colon/rectum as discussed above. Electronically signed by: Hunter Thomas MD (08/13/2019 4:46 PM) [id number]
[2019-08-13] MEDS ORDERED: HALO10TA PO (16:53)
[2019-08-13] MEDS ORDERED: FLUO20CA16 PO (16:53)
[2019-08-13] MEDS ORDERED: OMEP20CA16 PO (16:53)
[2019-08-13] MEDS ORDERED: DOCU-109 PO (16:53)
[2019-08-13] MEDS ORDERED: HALO100V IM (16:53)
--- NOTE | 2019-08-13 18:02 | NUR ---
KELSIE has been calm and cooperative since my arrival. he has tolerated approx 60 cc ice chips. iv infusing in his left antecubital at 125cc. he has voided at least x3 times greater than 600cc each time. left leg remains shackled. continues to have 2 guards. has not rub his abdomen since late this afternoon. history completed. medications listed and placed in computer(copied from transfer sheet). he does not know if he has flu shot and sanchez not want it. unable to place [facility] as a pharmacy.
[2019-08-13 19:00] VITALS: BP 132/91
[2019-08-13 23:00] VITALS: BP 126/76
[2019-08-14 03:11] VITALS: BP 123/94
[2019-08-14 07:10] VITALS: BP 116/73
--- NOTE | 2019-08-14 08:22 | PDOC ---
JULIANA CASTREJON CONFLICT RESOLUTION PROFESSIONAL 08/14/19 0822: SURGICAL PROGRESS NOTE Subjective some abd pain, improved no n/v Vital Signs Vital Signs Date Time Temp Pulse Resp B/P (MAP) Pulse Ox O2 Delivery O2 Flow Rate FiO2 08/14/19 07:10 98.9 82 20 116/73 (87) 98 Room Air 98.9 I&O Intake and Output 08/14/19 07:00 Intake Total 1030 ml Output Total 2775 ml Balance -1745 ml Intake Oral 30 ml IV Total 1000 ml Output Urine Total 2775 ml General: Alert, Oriented X3, Cooperative Abdomen: Soft, No tenderness Labs Laboratory Tests Test 08/12/19 21:35 08/13/19 11:25 White Blood Count 8.1 x10^3/uL (4.0-11.0) Red Blood Count 5.15 x10^6/uL (4.30-5.70) Hemoglobin 12.7 g/dL (13.0-17.5) Hematocrit 40.0 % (39.0-53.0) Mean Corpuscular Volume 78 fL (79-100) Mean Corpuscular Hemoglobin 25 pg (25-35) Mean Corpuscular Hemoglobin Concent 32 g/dL (31-37) Red Cell Distribution Width 14.9 % (11.5-14.5) Platelet Count 211 x10^3/uL (140-400) Neutrophils (%) (Auto) 71 % (31-73) Lymphocytes (%) (Auto) 19 % (24-48) Monocytes (%) (Auto) 9 % (0-9) Eosinophils (%) (Auto) 1 % (0-3) Basophils (%) (Auto) 0 % (0-3) Neutrophils # (Auto) 5.8 x10^3/uL (1.8-7.7) Lymphocytes # (Auto) 1.6 x10^3/uL (1.0-4.8) Monocytes # (Auto) 0.7 x10^3/uL (0.0-1.1) Eosinophils # (Auto) 0.0 x10^3/uL (0.0-0.7) Basophils # (Auto) 0.0 x10^3/uL (0.0-0.2) Prothrombin Time 13.9 SEC (11.7-14.0) Prothromb Time International Ratio 1.1 (0.8-1.1) Activated Partial Thromboplast Time 27 SEC (24-38) Sodium Level 142 mmol/L (136-145) Potassium Level 3.5 mmol/L (3.5-5.1) Chloride Level 104 mmol/L (98-107) Carbon Dioxide Level 27 mmol/L (21-32) Anion Gap 11 (6-14) Blood Urea Nitrogen 7 mg/dL (8-26) Creatinine 0.9 mg/dL (0.7-1.3) Estimated GFR (Cockcroft-Gault) 125.4 BUN/Creatinine Ratio 8 (6-20) Glucose Level 103 mg/dL (70-99) Calcium Level 8.9 mg/dL (8.5-10.1) Total Bilirubin 0.4 mg/dL (0.2-1.0) Aspartate Amino Transf (AST/SGOT) 22 U/L (15-37) Alanine Aminotransferase (ALT/SGPT) 21 U/L (16-63) Alkaline Phosphatase 105 U/L (46-116) Total Protein 7.4 g/dL (6.4-8.2) Albumin 3.8 g/dL (3.4-5.0) Albumin/Globulin Ratio 1.1 (1.0-1.7) Lipase 105 U/L (73-393) Iron Level 83 ug/dL (65-175) Total Iron Binding Capacity 259 ug/dL (250-450) Iron Saturation 32 % (15-34) Laboratory Tests Test 08/13/19 11:25 Iron Level 83 ug/dL (65-175) Total Iron Binding Capacity 259 ug/dL (250-450) Iron Saturation 32 % (15-34) Problem List Problems Medical Problems: (1) Nausea and vomiting Status: Acute Assessment/Plan kub shows FB in colon--ok from surgical pov to advance diet should pass in stool no surgical needs, will sign off SAVI ROCHA MD 08/14/19 1006: SURGICAL PROGRESS NOTE Assessment/Plan Agree with above JULIANA CASTREJON APRN Aug 14, 2019 08:22 SAVI ROCHA MD Aug 14, 2019 10:06
[2019-08-14] MEDS: PANTOPRAZOLE IV PUSH 40 MG VIAL. IVP SCH (08:24)
--- NOTE | 2019-08-14 10:25 | PDOC ---
Subjective: Subjective: No bleeding, hasn't passed screws. Intermittent sharp RUQ pain. Wants to eat. Objective: Vital Signs: Vital Signs Date Time Temp Pulse Resp B/P (MAP) Pulse Ox O2 Delivery O2 Flow Rate FiO2 08/14/19 08:35 Room Air 08/14/19 07:10 98.9 82 20 116/73 (87) 98 98.9 Imaging: KUB 08/13 IMPRESSION: The ingested screws are now seen in the region of the ascending colon and the distal sigmoid colon/rectum as discussed above. PE: GEN: NAD LUNGS: CTAB HEART: RRR ABD: NABS, S/ND, RUQ discomfort NEURO/PSYCH: A & O 3 A/P: Swallowed foreign body Hematemesis - no recurrence Microcytosis - iron studies WNL GERD - on chronic PPI Psych issues -- Awaiting KUB. Hemodynamically unstable?: No Is patient in severe pain?: No Is NPO status required?: Yes EDUARDO PARKER Aug 14, 2019 10:25
[2019-08-14 11:13] VITALS: BP 120/73
--- NOTE | 2019-08-14 11:34 | PDOC ---
PROGRESS NOTES Chief Complaint Chief Complaint ASSESSMENT Intentional foreign body ingestion SI Hematemesis, RESOLVED Microcyic Anemia GERD plan Screws in small bowel from initial xray, follow REPEAT kub today GI consulted no indication for colo gen sx consulted anticipate dc today if cleared by psych and GI Vitals Vitals Vital Signs Date Time Temp Pulse Resp B/P (MAP) Pulse Ox O2 Delivery O2 Flow Rate FiO2 08/14/19 11:13 99.1 90 18 120/73 (89) 98 Room Air 99.1 Physical Exam General: Alert, Oriented X3, Cooperative Heart: Regular rate, Normal S1, Normal S2 Abdomen: Soft, No tenderness Extremities: No clubbing, No cyanosis Skin: No rashes, No breakdown Assessment and Plan Assessmemt and Plan Problems Medical Problems: (1) Nausea and vomiting Status: Acute Comment Review of Relevant I have reviewed the following items george (where applicable) has been applied. Labs Laboratory Tests Test 08/12/19 21:35 08/13/19 11:25 White Blood Count 8.1 x10^3/uL (4.0-11.0) Red Blood Count 5.15 x10^6/uL (4.30-5.70) Hemoglobin 12.7 g/dL (13.0-17.5) Hematocrit 40.0 % (39.0-53.0) Mean Corpuscular Volume 78 fL (79-100) Mean Corpuscular Hemoglobin 25 pg (25-35) Mean Corpuscular Hemoglobin Concent 32 g/dL (31-37) Red Cell Distribution Width 14.9 % (11.5-14.5) Platelet Count 211 x10^3/uL (140-400) Neutrophils (%) (Auto) 71 % (31-73) Lymphocytes (%) (Auto) 19 % (24-48) Monocytes (%) (Auto) 9 % (0-9) Eosinophils (%) (Auto) 1 % (0-3) Basophils (%) (Auto) 0 % (0-3) Neutrophils # (Auto) 5.8 x10^3/uL (1.8-7.7) Lymphocytes # (Auto) 1.6 x10^3/uL (1.0-4.8) Monocytes # (Auto) 0.7 x10^3/uL (0.0-1.1) Eosinophils # (Auto) 0.0 x10^3/uL (0.0-0.7) Basophils # (Auto) 0.0 x10^3/uL (0.0-0.2) Prothrombin Time 13.9 SEC (11.7-14.0) Prothromb Time International Ratio 1.1 (0.8-1.1) Activated Partial Thromboplast Time 27 SEC (24-38) Sodium Level 142 mmol/L (136-145) Potassium Level 3.5 mmol/L (3.5-5.1) Chloride Level 104 mmol/L (98-107) Carbon Dioxide Level 27 mmol/L (21-32) Anion Gap 11 (6-14) Blood Urea Nitrogen 7 mg/dL (8-26) Creatinine 0.9 mg/dL (0.7-1.3) Estimated GFR (Cockcroft-Gault) 125.4 BUN/Creatinine Ratio 8 (6-20) Glucose Level 103 mg/dL (70-99) Calcium Level 8.9 mg/dL (8.5-10.1) Total Bilirubin 0.4 mg/dL (0.2-1.0) Aspartate Amino Transf (AST/SGOT) 22 U/L (15-37) Alanine Aminotransferase (ALT/SGPT) 21 U/L (16-63) Alkaline Phosphatase 105 U/L (46-116) Total Protein 7.4 g/dL (6.4-8.2) Albumin 3.8 g/dL (3.4-5.0) Albumin/Globulin Ratio 1.1 (1.0-1.7) Lipase 105 U/L (73-393) Iron Level 83 ug/dL (65-175) Total Iron Binding Capacity 259 ug/dL (250-450) Iron Saturation 32 % (15-34) Medications Current Medications Sodium Chloride 1,000 ml @ 1,000 mls/hr Q1H IV Last administered on 08/12/19at 21:57; Start 08/12/19 at 22:00; Stop 08/12/19 at 22:59; Status DC Ondansetron HCl (Zofran) 4 mg PRN Q8HRS PRN IV NAUSEA/VOMITING 1ST CHOICE; Start 08/12/19 at 22:15; Stop 08/13/19 at 06:00; Status DC Sodium Chloride 1,000 ml @ 125 mls/hr Q8H IV Last administered on 08/13/19at 16:22; Start 08/12/19 at 22:30; Stop 08/13/19 at 22:29; Status DC Pantoprazole Sodium (PROTONIX VIAL for IV PUSH) 40 mg DAILYAC IVP Last administered on 08/14/19at 08:24; Start 08/13/19 at 10:00 Active Scripts Active Augmentin 875-125 Tablet (Amoxicillin/Potassium Clav) 1 Each Tablet 1 Tab PO BID Reported Prozac (Fluoxetine Hcl) 20 Mg Capsule 1 Cap PO HS Omeprazole 20 Mg Capsule.dr 1 Cap PO HS Haloperidol Decanoate 100 Mg/1 Ml Vial 0.75 Mg IM MONTHLY 180 Days Haloperidol 10 Mg Tablet 1 Tab PO PRN BID PRN Colace (Docusate Sodium) 100 Mg Capsule 1 Cap PO BID 30 Days Vitals/I & O Vital Sign - Last 24 Hours 08/13/19 08/13/19 08/13/19 08/13/19 15:00 19:00 20:00 23:00 Temp 98.8 98.4 98.3 98.8 98.4 98.3 Pulse 77 18 85 Resp 18 18 18 B/P (MAP) 124/78 (93) 132/91 (105) 126/76 (93) Pulse Ox 99 99 98 O2 Delivery Room Air Room Air Room Air Room Air 08/14/19 08/14/19 08/14/19 08/14/19 03:11 07:10 08:35 11:13 Temp 98.5 98.9 99.1 98.5 98.9 99.1 Pulse 79 82 90 Resp 18 20 18 B/P (MAP) 123/94 (104) 116/73 (87) 120/73 (89) Pulse Ox 98 98 98 O2 Delivery Room Air Room Air Room Air Room Air Intake and Output 08/13/19 08/13/19 08/14/19 15:00 23:00 07:00 Intake Total 30 ml 1000 ml Output Total 1650 ml 675 ml 450 ml Balance -1650 ml -645 ml 550 ml Hemodynamically unstable?: No Is patient in severe pain?: No Is NPO status required?: Yes VERONICA HANCOCK MD Aug 14, 2019 11:34
--- NOTE | 2019-08-14 14:51 | NUR ---
Wound Care Wound care consult for forehead wound. Pt has traumatic wound to forehead from hitting it on a window. Cleansed wound, packed with collagen and covered with 4x4 gauze and secured with kerlix. No other wounds noted on full skin inspection. WC will continue to follow for possible changes. Pt has 1:1 at bedside as well as 2 guards.
[2019-08-14 15:00] VITALS: BP 126/88
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
[2019-08-14] MEDS: FLUoxetine HCL 20 MG CAPSULE PO SCH (15:15)
--- NOTE | 2019-08-14 15:19 | NUR ---
Pt had episode of vomiting after eating tray of clear liquids. Pt had approx 500 mL of emesis in basin. Emesis had blood in it. Dr. Orozco notified. No orders received. Will continue to monitor pt closely.
--- NOTE | 2019-08-14 17:30 | RAD ---
PROCEDURE: KUB STUDY DATE: 08/14/2019 CLINICAL INDICATION / HISTORY: Foreign body evaluation. TECHNIQUE: Single AP image of the abdomen was obtained. COMPARISON: 08/13/2019 FINDINGS: 3 screws in the abdominal soft tissues remain present, one in the right upper quadrant abdomen, one in the mid left abdomen, and third overlying the sacrum in the midline. Bowel gas pattern is unremarkable. The osseous structures are within normal limits. No pathologic calcifications. IMPRESSION: Foreign bodies remain present in the abdominal soft tissues. They could be undergoing passage in the colon. Recommend follow-up. Electronically signed by: Erick Adames MD (08/14/2019 5:28 PM) [facility]
[2019-08-14 19:00] VITALS: BP 123/81
[2019-08-14] MEDS: HALOPERIDOL 5 MG TABLET. PO SCH (20:50)
[2019-08-14] MEDS ORDERED: ACETAMINOPHEN 325 MG TABLET. PO PRN (22:00)
[2019-08-14] MEDS ORDERED: DOCUSATE SODIUM 100 MG CAPSULE. PO PRN (22:00)
[2019-08-14 23:00] VITALS: BP 120/68
[2019-08-15] VITALS (13 sets, daily range): BP systolic 108–138; BP diastolic 60–83
[2019-08-15] MEDS: FLUoxetine HCL 20 MG CAPSULE PO SCH (07:42)
[2019-08-15] MEDS: HALOPERIDOL 5 MG TABLET. PO SCH ×2 (07:42→21:38)
[2019-08-15] MEDS: PANTOPRAZOLE IV PUSH 40 MG VIAL. IVP SCH ×2 (07:43→15:57)
[2019-08-15] MEDS: ONDANSETRON PF 4 MG/2 ML VIAL. IV PRN ×2 (07:43→21:56)
--- NOTE | 2019-08-15 09:14 | PDOC ---
Subjective: Subjective: "I keep throwing up blood." Objective: Objective: Per 1:1 nurse - gave pills with a sip of water, soon after vomited red blood. Another KUB ordered by primary. Vital Signs: Vital Signs Date Time Temp Pulse Resp B/P (MAP) Pulse Ox O2 Delivery O2 Flow Rate FiO2 08/15/19 07:36 Room Air 08/15/19 07:00 98.1 86 18 108/60 (76) 97 98.1 Imaging: KUB 08/14 IMPRESSION: Foreign bodies remain present in the abdominal soft tissues. They could be undergoing passage in the colon. Recommend follow-up. PE: GEN: NAD LUNGS: CTAB HEART: RRR ABD: RUQ tenderness, soft NEURO/PSYCH: A & O 3 A/P: Swallowed foreign body Hematemesis - recurred, has been on IV PPI -- Reviewed w/ Dr. Giron - EGD this morning. Await KUB. Hemodynamically unstable?: No Is patient in severe pain?: No Is NPO status required?: Yes EDUARDO PARKER Aug 15, 2019 09:14
[2019-08-15] MEDS ORDERED: IV RINGERS,LACTATED 1000ML 1,000 ML IV ONE (09:15)
[2019-08-15] MEDS ORDERED: LIDOCAINE 2% PF 5 ML VIAL. ONE (09:45)
[2019-08-15] MEDS ORDERED: PROPOFOL 20 ML IV ONE (09:45)
--- NOTE | 2019-08-15 09:58 | PDOC4 ---
PROCEDURE Procedure EGD Indication: hematemesis Meds: per anesthesia Findings: E--Healed reflux at GEJ. No M-W, varices, etc. G--Small amount retained liquid, suctioned. No foreign body, other lesions. No blood visualized. D--Normal to third portion. Again, no blood seen. --attempted inspection of oral cavity; not well seen, but no blood. Carmen. well. IMP: GERD Apparently factitious hematemesis; nasal/expectorated? No GI lesions to account for. REC: Resume diet. Continue PPI. F/u CHINO. KEKE PACE MD Aug 15, 2019 09:58
--- NOTE | 2019-08-15 13:27 | NUR ---
Patient had some clear liquids for lunch but vomited shortly after taking on broth and jello. Addendum: 08/15/19 at 1331 by MILA HAMM RN Small amount of blood in emesis on second time vomiting.
--- NOTE | 2019-08-15 13:52 | RAD ---
PROCEDURE: KUB STUDY DATE: 08/15/2019 CLINICAL INDICATION / HISTORY: Foreign body follow-up. TECHNIQUE: Single AP view of the abdomen was obtained. COMPARISON: 08/14/2019 and 08/13/2019 FINDINGS: 3 screws are still visible in the abdominal cavity the lowest appears to project over the rectal vault. The patient has a moderate to large amount of formed stool. Bowel gas pattern is otherwise unremarkable. No free air.. IMPRESSION: 3 screws remain present in the abdominal cavity and the patient could be constipated. There is no findings of bowel perforation. Electronically signed by: Erick Adames MD (08/15/2019 1:50 PM) [facility]
--- NOTE | 2019-08-15 14:53 | PDOC ---
PROGRESS NOTES Chief Complaint Chief Complaint ASSESSMENT Intentional foreign body ingestion Hematemesis Microcyic Anemia GERD bipolar mood disorder I, most recent episode depressed with psychotic features psychosis generalized anxiety disorder. PTSD plan Screws in small bowel from initial xray, follow serial xrays. xray 08/15: 3 screws remain present in the abdominal cavity and the patient could be constipated. There is no findings of bowel perforation. GI consulted. plan for scope today given hemetemsis psych consulted and med adjustments made. gen sx consulted follow h and H History of Present Illness History of Present Illness for EGD today. hemetemsis this AM Vitals Vitals Vital Signs Date Time Temp Pulse Resp B/P (MAP) Pulse Ox O2 Delivery O2 Flow Rate FiO2 08/15/19 13:50 77 119/77 (91) Room Air 08/15/19 13:20 18 08/15/19 11:20 97 08/15/19 10:30 97.9 97.9 Physical Exam General: Alert, Oriented X3, Cooperative Heart: Regular rate, Normal S1, Normal S2 Abdomen: Soft, No tenderness Extremities: No clubbing, No cyanosis Skin: No rashes, No breakdown Assessment and Plan Assessmemt and Plan Problems Medical Problems: (1) Nausea and vomiting Status: Acute Comment Review of Relevant I have reviewed the following items george (where applicable) has been applied. Medications Current Medications Sodium Chloride 1,000 ml @ 1,000 mls/hr Q1H IV Last administered on 08/12/19at 21:57; Start 08/12/19 at 22:00; Stop 08/12/19 at 22:59; Status DC Ondansetron HCl (Zofran) 4 mg PRN Q8HRS PRN IV NAUSEA/VOMITING 1ST CHOICE; Start 08/12/19 at 22:15; Stop 08/13/19 at 06:00; Status DC Sodium Chloride 1,000 ml @ 125 mls/hr Q8H IV Last administered on 08/13/19at 16:22; Start 08/12/19 at 22:30; Stop 08/13/19 at 22:29; Status DC Pantoprazole Sodium (PROTONIX VIAL for IV PUSH) 40 mg DAILYAC IVP Last a dministered on 08/15/19at 07:43; Start 08/13/19 at 10:00 Fluoxetine HCl (PROzac) 40 mg DAILY PO Last administered on 08/15/19 07:42; Start 08/14/19 at 15:15 Haloperidol (Haldol) 10 mg BID PO Last administered on 08/15/19 07:42; Start 08/14/19 at 21:00 Ondansetron HCl (Zofran) 4 mg PRN Q4HRS PRN IV NAUSEA/VOMITING 1ST CHOICE Last administered on 08/15/19 07:43; Start 08/14/19 at 22:00 Acetaminophen (Tylenol) 650 mg PRN Q4HRS PRN PO TEMP OVER 100.4F OR MILD PAIN Last administered on 08/14/19 22:11; Start 08/14/19 at 22:00 Docusate Sodium (Colace) 100 mg PRN BID PRN PO CONSTIPATION 1ST CHOICE Last administered on 08/15/19 07:42; Start 08/14/19 at 22:00 Ringer's Solution 1,000 ml @ 75 mls/hr 1X ONCE IV Last administered on 08/15/19 09:17; Start 08/15/19 at 09:15; Stop 08/15/19 at 22:34 Propofol 20 ml @ As Directed STK-MED ONCE IV ; Start 08/15/19 at 09:45; Stop 08/15/19 at 09:45; Status DC Lidocaine HCl (Lidocaine Pf 2% Vial) 5 ml STK-MED ONCE .ROUTE ; Start 08/15/19 at 09:45; Stop 08/15/19 at 09:45; Status DC Active Scripts Active Augmentin 875-125 Tablet (Amoxicillin/Potassium Clav) 1 Each Tablet 1 Tab PO BID Reported Prozac (Fluoxetine Hcl) 20 Mg Capsule 1 Cap PO HS Omeprazole 20 Mg Capsule.dr 1 Cap PO HS Haloperidol Decanoate 100 Mg/1 Ml Vial 0.75 Mg IM MONTHLY 180 Days Haloperidol 10 Mg Tablet 1 Tab PO PRN BID PRN Colace (Docusate Sodium) 100 Mg Capsule 1 Cap PO BID 30 Days Vitals/I & O Vital Sign - Last 24 Hours 08/14/19 08/14/19 08/14/19 08/15/19 15:00 19:00 23:00 03:00 Temp 98.9 97.9 98.5 97.9 98.9 97.9 98.5 97.9 Pulse 82 79 83 77 Resp 20 18 18 15 B/P (MAP) 126/88 (101) 123/81 (95) 120/68 (85) 108/63 (78) Pulse Ox 97 97 97 97 O2 Delivery Room Air Room Air Room Air Room Air 08/15/19 08/15/19 08/15/19 08/15/19 07:00 07:36 09:12 09:13 Temp 98.1 97.7 98.1 97.7 Pulse 86 89 Resp 18 20 B/P (MAP) 108/60 (76) Pulse Ox 97 98 O2 Delivery Room Air Room Air Room Air 08/15/19 08/15/19 08/15/19 08/15/19 09:55 10:10 10:20 10:30 Temp 98.4 97.9 98.4 97.9 Pulse 69 68 64 82 Resp 18 18 18 18 B/P (MAP) 82/42 111/66 116/72 138/83 (101) Pulse Ox 97 97 97 98 O2 Delivery Nasal Cannula Room Air Room Air Room Air 08/15/19 08/15/19 08/15/19 08/15/19 10:50 11:20 11:50 12:20 Pulse 71 69 81 68 Resp 18 16 18 18 B/P (MAP) 115/72 (86) 116/76 (89) 128/83 (98) 115/74 (88) Pulse Ox 97 97 O2 Delivery Room Air Room Air Room Air Room Air 08/15/19 08/15/19 08/15/19 12:50 13:20 13:50 Pulse 76 84 77 Resp 18 B/P (MAP) 123/78 (93) 118/76 (90) 119/77 (91) O2 Delivery Room Air Room Air Room Air Intake and Output 08/14/19 08/14/19 08/15/19 15:00 23:00 07:00 Intake Total 360 ml 390 ml 150 ml Output Total 1550 ml 1050 ml Balance -1190 ml -660 ml 150 ml Hemodynamically unstable?: No Is patient in severe pain?: No Is NPO status required?: Yes VERONICA HANCOCK MD Aug 15, 2019 14:53
[2019-08-15] MEDS ORDERED: MAGNESIUM CITRATE 296 ML SOLUTION. PO ONE (15:00)
--- NOTE | 2019-08-15 16:13 | NUR ---
Patient vomited about half of the mag-citrate he was drinking. No blood in emesis. Only about half of total dose had been ingested when he began to vomit.
[2019-08-15] MEDS: IV NORMAL SALINE 1000ML BAG 1,000 ML IV SCH (16:50)
--- NOTE | 2019-08-15 17:39 | PDOC ---
F/U PHYSCH PROG NOTE Subjective: He is an -[place] gentleman seen for routine follow-up. Previously, he was restarted on Prozac and Haldol. Today, he appears cooperative and interactive. States, he is feeling better, hallucinations are sporadic without any command. States, mood is somewhat relaxed and improved. States, he is having nausea having difficulty keeping things down. States, he vomited out his morning medications. Denies suicidal or homicidal thoughts intent or plan. Feeling safe, denies any violent intent. Denies auditory or visual hallucinations. States, he tolerated Haldol received last night. Sleep is okay. Denies overt depression or anxiety. Objective: Psychiatric review of system is positive for mild depression, anxiety. Negative for suicidal or homicidal thoughts, auditory or visual hallucinations. Vital Signs: Vital Signs Date Time Temp Pulse Resp B/P (MAP) Pulse Ox O2 Delivery O2 Flow Rate FiO2 08/15/19 15:00 97.9 76 117/79 (92) 96 Room Air 97.9 08/15/19 13:20 18 Labs: No recent labs. Medications: Current Medications Medications (Trade) Dose Ordered Sig/Gil Start Time Stop Time Status Last Admin Dose Admin Acetaminophen (Tylenol) 650 mg PRN Q4HRS PRN 08/14/19 22:00 08/14/19 22:11 650 MG Docusate Sodium (Colace) 100 mg PRN BID PRN 08/14/19 22:00 08/15/19 07:42 100 MG Fluoxetine HCl (PROzac) 40 mg DAILY 08/14/19 15:15 08/15/19 07:42 40 MG Haloperidol (Haldol) 10 mg BID 08/14/19 21:00 08/15/19 07:42 10 MG Lidocaine HCl (Lidocaine Pf 2% Vial) 5 ml STK-MED ONCE 08/15/19 09:45 08/15/19 09:45 DC Magnesium Citrate (Citroma) 296 ml 1X ONCE 08/15/19 15:00 08/15/19 15:04 DC 08/15/19 15:16 296 ML Ondansetron HCl (Zofran) 4 mg PRN Q4HRS PRN 08/14/19 22:00 08/15/19 07:43 4 MG Pantoprazole Sodium (PROTONIX VIAL for IV PUSH) 40 mg BIDAC 08/15/19 16:30 08/15/19 15:57 40 MG Propofol 20 ml @ As Directed STK-MED ONCE 08/15/19 09:45 08/15/19 09:45 DC Ringer's Solution 1,000 ml @ 75 mls/hr 1X ONCE 08/15/19 09:15 08/15/19 22:34 08/15/19 09:17 75 MLS/HR Sodium Chloride 1,000 ml @ 75 mls/hr [id number] 08/15/19 16:45 08/15/19 16:50 75 MLS/HR Physical Exam: Mental Status Exam: He is an -[place] gentleman appears his his stated age, well-nourished, fairly groomed. He is cooperative and interactive. He is alert and oriented. Speech is with regular rate and rhythm, normal tone and volume. Thought processes logical and goal-directed. He denies auditory or visual hallucinations. He denies suicidal or homicidal thoughts intent or plan. No abnormal delusions noted. Mood is improving, affect is constricted. Insight is fair, judgment is fair, concentration is improving. Memory is intact. Impulse c ontrol is fair Physical Exam: Refer to Physician's note. MOBILE MECHANIC: No focal deficit MSK: No EPS, TDK, or abnormal involuntary movements Diagnosis: 1bipolar mood disorder I, most recent episode depressed with psychotic features 2psychosis 3generalized anxiety disorder. 4PTSD Assessment: Young -[place] gentleman with substantial history of mental health challenges, struggling with worsening depression in context of bipolar mood disorder. Depression is likely precipitated by stress of current circumstances. Additionally, his hallucinations are also flared up secondary to stress. He received, 1 dose of Haldol 10 mg last night. He reports improvement in halluc inations and mood. Recommending to continue medications as prescribed. Recommending to start Haldol Decanoate outpatient. Plan: Plan: 1Continue Haldol PO 10 mg twice a day for psychosis and mood instability. Haldol decanoate is not available in pharmacy. 2Continue Prozac 40 mg daily for ongoing depressed mood and suicidality. 3In case of N&V Prozac solution may be tried. 4Psychoeducation provided to the patient. 5supportive psychotherapy provided. 6risk, benefits, alternatives of the treatment are discussed. He is in agreement with plan and voiced understanding. 7continue constant observation for safety. Thank you for the consult to involve in patient care. Please call Dr. Gordillo at [phone] with any concern ROSETTA GORDILLO MD Aug 15, 2019 17:39
--- NOTE | 2019-08-15 22:10 | NUR ---
Nursing note patient vomited twice with blood in emesis. Dr. Ordonez notified, orders given to check H&H and transfuse 1 unit PRBCs if hgb < 7. Patient's hgb is 13.6. Will continue to monitor.
[2019-08-15 22:50] LABS: HEMATOCRIT 42.5 % (39.0-53.0); HEMOGLOBIN 13.6 g/dL (13.0-17.5); RED BLOOD COUNT 5.47 x10^6/uL (4.30-5.70); RED CELL DISTRIBUTION WIDTH 14.4 % (11.5-14.5)
[2019-08-16 03:00] VITALS: BP 113/74
[2019-08-16] MEDS: IV NORMAL SALINE 1000ML BAG 1,000 ML IV SCH (05:26)
[2019-08-16 05:51] LABS: CALCIUM 9.3 mg/dL (8.5-10.1); CREATININE 0.9 mg/dL (0.7-1.3); GFR 125.4; POTASSIUM 3.7 mmol/L (3.5-5.1)
[2019-08-16 06:05] LABS: BASO % 0 % (0-3); EOS # 0.1 x10^3/uL (0.0-0.7); EOS % 2 % (0-3); HEMATOCRIT 41.2 % (39.0-53.0); HEMOGLOBIN 13.3 g/dL (13.0-17.5); LYMPH # 1.7 x10^3/uL (1.0-4.8); LYMPH % 24 % (24-48); MEAN CORPUSCULAR HEMOGLOBIN 25 pg (25-35); MEAN CORPUSCULAR HGB CONC 32 g/dL (31-37); MEAN CORPUSCULAR VOLUME 78 fL (79-100); MONO # 0.7 x10^3/uL (0.0-1.1); MONO % 9 % (0-9); NEUT # 4.5 x10^3/uL (1.8-7.7); NEUT % 65 % (31-73); PLATELET COUNT 213 x10^3/uL (140-400); RED BLOOD COUNT 5.29 x10^6/uL (4.30-5.70); RED CELL DISTRIBUTION WIDTH 14.5 % (11.5-14.5); WHITE BLOOD COUNT 6.9 x10^3/uL (4.0-11.0)
[2019-08-16 07:00] VITALS: BP 116/70
[2019-08-16] MEDS: PANTOPRAZOLE IV PUSH 40 MG VIAL. IVP SCH ×2 (08:40→16:25)
[2019-08-16] MEDS: FLUoxetine HCL 20 MG CAPSULE PO SCH (08:40)
[2019-08-16] MEDS: HALOPERIDOL 5 MG TABLET. PO SCH ×2 (08:43→22:19)
--- NOTE | 2019-08-16 10:27 | PDOC ---
PROGRESS NOTES Chief Complaint Chief Complaint ASSESSMENT Intentional foreign body ingestion Hematemesis, ongoing. Microcyic Anemia GERD bipolar mood disorder I, most recent episode depressed with psychotic features psychosis generalized anxiety disorder. PTSD plan Screws in small bowel from initial xray, follow serial xrays. xray 08/15: 3 screws remain present in the abdominal cavity and the patient could be constipated. There is no findings of bowel perforation. follow KUB today GI consulted. s/p EGD which was normal continue PPI therapy psych consulted and med adjustments made. haldol 10 mg PO BID, paroxitine 40 daily gen sx consulted GI consulted psych consulted Hem stable at 13 GES to evaluate ongoing emesis. from long-term History of Present Illness History of Present Illness plan for GES Vitals Vitals Vital Signs Date Time Temp Pulse Resp B/P (MAP) Pulse Ox O2 Delivery O2 Flow Rate FiO2 08/16/19 08:00 Room Air 08/16/19 07:00 98.1 80 18 116/70 (85) 96 98.1 Physical Exam General: Alert, Oriented X3, Cooperative Heart: Regular rate, Normal S1, Normal S2 Abdomen: Soft, No tenderness Extremities: No clubbing, No cyanosis Skin: No rashes, No breakdown Labs LABS Laboratory Tests Test 08/15/19 22:30 08/16/19 04:04 White Blood Count 6.0 x10^3/uL (4.0-11.0) 6.9 x10^3/uL (4.0-11.0) Red Blood Count 5.47 x10^6/uL (4.30-5.70) 5.29 x10^6/uL (4.30-5.70) Hemoglobin 13.6 g/dL (13.0-17.5) 13.3 g/dL (13.0-17.5) Hematocrit 42.5 % (39.0-53.0) 41.2 % (39.0-53.0) Mean Corpuscular Volume 78 fL (79-100) 78 fL (79-100) Mean Corpuscular Hemoglobin 25 pg (25-35) 25 pg (25-35) Mean Corpuscular Hemoglobin Concent 32 g/dL (31-37) 32 g/dL (31-37) Red Cell Distribution Width 14.4 % (11.5-14.5) 14.5 % (11.5-14.5) Platelet Count 214 x10^3/uL (140-400) 213 x10^3/uL (140-400) Neutrophils (%) (Auto) 65 % (31-73) Lymphocytes (%) (Auto) 24 % (24-48) Monocytes (%) (Auto) 9 % (0-9) Eosinophils (%) (Auto) 2 % (0-3) Basophils (%) (Auto) 0 % (0-3) Neutrophils # (Auto) 4.5 x10^3/uL (1.8-7.7) Lymphocytes # (Auto) 1.7 x10^3/uL (1.0-4.8) Monocytes # (Auto) 0.7 x10^3/uL (0.0-1.1) Eosinophils # (Auto) 0.1 x10^3/uL (0.0-0.7) Basophils # (Auto) 0.0 x10^3/uL (0.0-0.2) Sodium Level 142 mmol/L (136-145) Potassium Level 3.7 mmol/L (3.5-5.1) Chloride Level 103 mmol/L (98-107) Carbon Dioxide Level 26 mmol/L (21-32) Anion Gap 13 (6-14) Blood Urea Nitrogen 9 mg/dL (8-26) Creatinine 0.9 mg/dL (0.7-1.3) Estimated GFR (Cockcroft-Gault) 125.4 Glucose Level 93 mg/dL (70-99) Calcium Level 9.3 mg/dL (8.5-10.1) Assessment and Plan Assessmemt and Plan Problems Medical Problems: (1) Nausea and vomiting Status: Acute Comment Review of Relevant I have reviewed the following items geogre (where applicable) has been applied. Labs Laboratory Tests Test 08/15/19 22:30 08/16/19 04:04 White Blood Count 6.0 x10^3/uL (4.0-11.0) 6.9 x10^3/uL (4.0-11.0) Red Blood Count 5.47 x10^6/uL (4.30-5.70) 5.29 x10^6/uL (4.30-5.70) Hemoglobin 13.6 g/dL (13.0-17.5) 13.3 g/dL (13.0-17.5) Hematocrit 42.5 % (39.0-53.0) 41.2 % (39.0-53.0) Mean Corpuscular Volume 78 fL (79-100) 78 fL (79-100) Mean Corpuscular Hemoglobin 25 pg (25-35) 25 pg (25-35) Mean Corpuscular Hemoglobin Concent 32 g/dL (31-37) 32 g/dL (31-37) Red Cell Distribution Width 14.4 % (11.5-14.5) 14.5 % (11.5-14.5) Platelet Count 214 x10^3/uL (140-400) 213 x10^3/uL (140-400) Neutrophils (%) (Auto) 65 % (31-73) Lymphocytes (%) (Auto) 24 % (24-48) Monocytes (%) (Auto) 9 % (0-9) Eosinophils (%) (Auto) 2 % (0-3) Basophils (%) (Auto) 0 % (0-3) Neutrophils # (Auto) 4.5 x10^3/uL (1.8-7.7) Lymphocytes # (Auto) 1.7 x10^3/uL (1.0-4.8) Monocytes # (Auto) 0.7 x10^3/uL (0.0-1.1) Eosinophils # (Auto) 0.1 x10^3/uL (0.0-0.7) Basophils # (Auto) 0.0 x10^3/uL (0.0-0.2) Sodium Level 142 mmol/L (136-145) Potassium Level 3.7 mmol/L (3.5-5.1) Chloride Level 103 mmol/L (98-107) Carbon Dioxide Level 26 mmol/L (21-32) Anion Gap 13 (6-14) Blood Urea Nitrogen 9 mg/dL (8-26) Creatinine 0.9 mg/dL (0.7-1.3) Estimated GFR (Cockcroft-Gault) 125.4 Glucose Level 93 mg/dL (70-99) Calcium Level 9.3 mg/dL (8.5-10.1) Laboratory Tests Test 08/15/19 22:30 08/16/19 04:04 White Blood Count 6.0 x10^3/uL (4.0-11.0) 6.9 x10^3/uL (4.0-11.0) Red Blood Count 5.47 x10^6/uL (4.30-5.70) 5.29 x10^6/uL (4.30-5.70) Hemoglobin 13.6 g/dL (13.0-17.5) 13.3 g/dL (13.0-17.5) Hematocrit 42.5 % (39.0-53.0) 41.2 % (39.0-53.0) Mean Corpuscular Volume 78 fL (79-100) 78 fL (79-100) Mean Corpuscular Hemoglobin 25 pg (25-35) 25 pg (25-35) Mean Corpuscular Hemoglobin Concent 32 g/dL (31-37) 32 g/dL (31-37) Red Cell Distribution Width 14.4 % (11.5-14.5) 14.5 % (11.5-14.5) Platelet Count 214 x10^3/uL (140-400) 213 x10^3/uL (140-400) Neutrophils (%) (Auto) 65 % (31-73) Lymphocytes (%) (Auto) 24 % (24-48) Monocytes (%) (Auto) 9 % (0-9) Eosinophils (%) (Auto) 2 % (0-3) Basophils (%) (Auto) 0 % (0-3) Neutrophils # (Auto) 4.5 x10^3/uL (1.8-7.7) Lymphocytes # (Auto) 1.7 x10^3/uL (1.0-4.8) Monocytes # (Auto) 0.7 x10^3/uL (0.0-1.1) Eosinophils # (Auto) 0.1 x10^3/uL (0.0-0.7) Basophils # (Auto) 0.0 x10^3/uL (0.0-0.2) Sodium Level 142 mmol/L (136-145) Potassium Level 3.7 mmol/L (3.5-5.1) Chloride Level 103 mmol/L (98-107) Carbon Dioxide Level 26 mmol/L (21-32) Anion Gap 13 (6-14) Blood Urea Nitrogen 9 mg/dL (8-26) Creatinine 0.9 mg/dL (0.7-1.3) Estimated GFR (Cockcroft-Gault) 125.4 Glucose Level 93 mg/dL (70-99) Calcium Level 9.3 mg/dL (8.5-10.1) Medications Current Medications Sodium Chloride 1,000 ml @ 1,000 mls/hr Q1H IV Last administered on 08/12/19 21:57; Start 08/12/19 at 22:00; Stop 08/12/19 at 22:59; Status DC Ondansetron HCl (Zofran) 4 mg PRN Q8HRS PRN IV NAUSEA/VOMITING 1ST CHOICE; Start 08/12/19 at 22:15; Stop 08/13/19 at 06:00; Status DC Sodium Chloride 1,000 ml @ 125 mls/hr Q8H IV Last administered on 08/13/19at 16:22; Start 08/12/19 at 22:30; Stop 08/13/19 at 22:29; Status DC Pantoprazole Sodium (PROTONIX VIAL for IV PUSH) 40 mg DAILYAC IVP Last administered on 08/15/19 07:43; Start 08/13/19 at 10:00; Stop 08/15/19 at 14:55; Status DC Fluoxetine HCl (PROzac) 40 mg DAILY PO Last administered on 08/16/19 08:40; Start 08/14/19 at 15:15 Haloperidol (Haldol) 10 mg BID PO Last administered on 08/16/19 08:43; Start 08/14/19 at 21:00 Ondansetron HCl (Zofran) 4 mg PRN Q4HRS PRN IV NAUSEA/VOMITING 1ST CHOICE Last administered on 08/15/19 21:56; Start 08/14/19 at 22:00 Acetaminophen (Tylenol) 650 mg PRN Q4HRS PRN PO TEMP OVER 100.4F OR MILD PAIN Last administered on 08/14/19 22:11; Start 08/14/19 at 22:00 Docusate Sodium (Colace) 100 mg PRN BID PRN PO CONSTIPATION 1ST CHOICE Last administered on 08/15/19 07:42; Start 08/14/19 at 22:00 Ringer's Solution 1,000 ml @ 75 mls/hr 1X ONCE IV Last administered on 08/15/19at 09:17; Start 08/15/19 at 09:15; Stop 08/15/19 at 22:34; Status DC Propofol 20 ml @ As Directed STK-MED ONCE IV ; Start 08/15/19 at 09:45; Stop 08/15/19 at 09:45; Status DC Lidocaine HCl (Lidocaine Pf 2% Vial) 5 ml STK-MED ONCE .ROUTE ; Start 08/15/19 at 09:45; Stop 08/15/19 at 09:45; Status DC Pantoprazole Sodium (PROTONIX VIAL for IV PUSH) 40 mg BIDAC IVP Last administered on 08/16/19at 08:40; Start 08/15/19 at 16:30 Magnesium Citrate (Citroma) 296 ml 1X ONCE PO Last administered on 08/15/19at 15:16; Start 08/15/19 at 15:00; Stop 08/15/19 at 15:04; Status DC Sodium Chloride 1,000 ml @ 75 mls/hr [id number] IV Last administered on 08/16/19at 05:26; Start 08/15/19 at 16:45 Active Scripts Active Augmentin 875-125 Tablet (Amoxicillin/Potassium Clav) 1 Each Tablet 1 Tab PO BID Reported Prozac (Fluoxetine Hcl) 20 Mg Capsule 1 Cap PO HS Omeprazole 20 Mg Capsule. 1 Cap PO HS Haloperidol Decanoate 100 Mg/1 Ml Vial 0.75 Mg IM MONTHLY 180 Days Haloperidol 10 Mg Tablet 1 Tab PO PRN BID PRN Colace (Docusate Sodium) 100 Mg Capsule 1 Cap PO BID 30 Days Vitals/I & O Vital Sign - Last 24 Hours 08/15/19 08/15/19 08/15/19 08/15/19 10:30 10:50 11:20 11:50 Temp 97.9 97.9 Pulse 82 71 69 81 Resp 18 18 16 18 B/P (MAP) 138/83 (101) 115/72 (86) 116/76 (89) 128/83 (98) Pulse Ox 98 97 97 O2 Delivery Room Air Room Air Room Air Room Air 08/15/19 08/15/19 08/15/19 08/15/19 12:20 12:50 13:20 13:50 Pulse 68 76 84 77 Resp 18 18 B/P (MAP) 115/74 (88) 123/78 (93) 118/76 (90) 119/77 (91) O2 Delivery Room Air Room Air Room Air Room Air 08/15/19 08/15/19 08/15/19 08/15/19 15:00 19:00 20:00 23:00 Temp 97.9 98.8 98.1 97.9 98.8 98.1 Pulse 76 82 85 Resp 18 18 B/P (MAP) 117/79 (92) 119/80 (93) 109/79 (89) Pulse Ox 96 96 96 O2 Delivery Room Air Room Air 08/16/19 08/16/19 08/16/19 03:00 07:00 08:00 Temp 98.4 98.1 98.4 98.1 Pulse 87 80 Resp 18 18 B/P (MAP) 113/74 (87) 116/70 (85) Pulse Ox 97 96 O2 Delivery Room Air Room Air Intake and Output 08/15/19 08/15/19 08/16/19 15:00 23:00 07:00 Intake Total 720 ml 572 ml 220 ml Output Total 920 ml 780 ml 225 ml Balance -200 ml -208 ml -5 ml Hemodynamically unstable?: No Is patient in severe pain?: No Is NPO status required?: Yes VERONICA HANCOCK MD Aug 16, 2019 10:27
[2019-08-16 11:00] VITALS: BP 108/66
--- NOTE | 2019-08-16 11:34 | RAD ---
Nuclear medicine gastric emptying study. INDICATION: Recurrent nausea and vomiting. TECHNIQUE: 2 mCi of technetium labeled sulfa colloid radiopharmaceutical were administered and imaging of the stomach was performed. Technologist reports the patient vomited the radiopharmaceutical after the initial pictures were acquired, resulting in early termination of the study. FINDINGS: Radiopharmaceutical activity is present in the stomach on the immediate post ingestion images. Gastric emptying however was difficult to assess given the emetic event during the study. IMPRESSION: Incomplete exam with limited assessment of gastric emptying due to an emetic event. Electronically signed by: Erick Adames MD (08/16/2019 11:31 AM) [facility]
--- NOTE | 2019-08-16 11:41 | PDOC ---
Subjective: Subjective: Seen earlier this morning. Vomiting after clears - sometimes w/ blood. Tried Mag Citrate - vomited, didn't finish drinking. Has had vomiting for awhile - at least since previous scope at . No weight loss. Hasn't stooled. Objective: Vital Signs: Vital Signs Date Time Temp Pulse Resp B/P (MAP) Pulse Ox O2 Delivery O2 Flow Rate FiO2 08/16/19 11:00 98.1 86 18 108/66 (80) 96 Room Air 98.1 Labs: Laboratory Tests Test 08/15/19 22:30 08/16/19 04:04 White Blood Count 6.0 x10^3/uL 6.9 x10^3/uL Red Blood Count 5.47 x10^6/uL 5.29 x10^6/uL Hemoglobin 13.6 g/dL 13.3 g/dL Hematocrit 42.5 % 41.2 % Mean Corpuscular Volume 78 fL 78 fL Mean Corpuscular Hemoglobin 25 pg 25 pg Mean Corpuscular Hemoglobin Concent 32 g/dL 32 g/dL Red Cell Distribution Width 14.4 % 14.5 % Platelet Count 214 x10^3/uL 213 x10^3/uL Neutrophils (%) (Auto) 65 % Lymphocytes (%) (Auto) 24 % Monocytes (%) (Auto) 9 % Eosinophils (%) (Auto) 2 % Basophils (%) (Auto) 0 % Neutrophils # (Auto) 4.5 x10^3/uL Lymphocytes # (Auto) 1.7 x10^3/uL Monocytes # (Auto) 0.7 x10^3/uL Eosinophils # (Auto) 0.1 x10^3/uL Basophils # (Auto) 0.0 x10^3/uL Sodium Level 142 mmol/L Potassium Level 3.7 mmol/L Chloride Level 103 mmol/L Carbon Dioxide Level 26 mmol/L Anion Gap 13 Blood Urea Nitrogen 9 mg/dL Creatinine 0.9 mg/dL Estimated GFR (Cockcroft-Gault) 125.4 Glucose Level 93 mg/dL Calcium Level 9.3 mg/dL Imaging: GES 08/16 EGD 08/15 E--Healed reflux at [facility]. No M-W, varices, etc. G--Small amount retained liquid, suctioned. No foreign body, other lesions. No blood visualized. D--Normal to third portion. Again, no blood seen. --attempted inspection of oral cavity; not well seen, but no blood. IMP: GERD Apparently factitious hematemesis; nasal/expectorated? No GI lesions to account for. REC: Resume diet. Continue PPI. F/u KUB. KUB 08/15 IMPRESSION: 3 screws remain present in the abdominal cavity and the patient could be constipated. There is no findings of bowel perforation. Head CT 08/12 IMPRESSION: No acute intracranial abnormality evident. Scalp hematoma in the left parietal convexly. PE: GEN: NAD, bandage on head LUNGS: CTAB HEART: RRR ABD: mild discomfort RUQ NEURO/PSYCH: A & O 3 A/P: Swallowed foreign body, constipation - didn't tolerate Mag Citrate Hematemesis/chronic vomiting - on PPI (increased to BID yesterday), EGD unrevealing -- D/w Dr. Giron - check GES, consider Reglan. Since I have seen, nurse reports unable to complete GES due to vomiting eggs. Will try Reglan. Hemodynamically unstable?: No Is patient in severe pain?: No Is NPO status required?: No EDUARDO PARKER Aug 16, 2019 11:41
--- NOTE | 2019-08-16 13:02 | PDOC ---
F/U PHYSCH PROG NOTE Subjective: He is an -Bangl[place] gentleman seen for routine follow-up. Information is obtained from patient, patient's chart, and nursing staff. He is reportedly cooperative and interactive. No major event reported overnight. Reportedly, jemma leachg trouble keeping things down. However, he was able to take his medications. Aside from that, he reports mood is "good". Affect is euthymic. He is more open and conversant today. Denies suicidal or homicidal thoughts intent or plan. States, he wants to live. Denies auditory or visual hallucinations. No evidence of marina or hypomania. Denies overt depression or anxiety. Depression is rated as 3/10 10 is worse. Objective: Cooperative and interactive. Psychiatric review of system is positive for slight anxiety. Negative for overt depression, anxiety, suicidal or homicidal thoughts, and auditory or visual hallucinations. Vital Signs: Vital Signs Date Time Temp Pulse Resp B/P (MAP) Pulse Ox O2 Delivery O2 Flow Rate FiO2 08/16/19 11:00 98.1 86 18 108/66 (80) 96 Room Air 98.1 Labs: Laboratory Tests Test 08/15/19 22:30 08/16/19 04:04 White Blood Count 6.0 x10^3/uL (4.0-11.0) 6.9 x10^3/uL (4.0-11.0) Red Blood Count 5.47 x10^6/uL (4.30-5.70) 5.29 x10^6/uL (4.30-5.70) Hemoglobin 13.6 g/dL (13.0-17.5) 13.3 g/dL (13.0-17.5) Hematocrit 42.5 % (39.0-53.0) 41.2 % (39.0-53.0) Mean Corpuscular Volume 78 fL (79-100) L 78 fL (79-100) L Mean Corpuscular Hemoglobin 25 pg (25-35) 25 pg (25-35) Mean Corpuscular Hemoglobin Concent 32 g/dL (31-37) 32 g/dL (31-37) Red Cell Distribution Width 14.4 % (11.5-14.5) 14.5 % (11.5-14.5) Platelet Count 214 x10^3/uL (140-400) 213 x10^3/uL (140-400) Neutrophils (%) (Auto) 65 % (31-73) Lymphocytes (%) (Auto) 24 % (24-48) Monocytes (%) (Auto) 9 % (0-9) Eosinophils (%) (Auto) 2 % (0-3) Basophils (%) (Auto) 0 % (0-3) Neutrophils # (Auto) 4.5 x10^3/uL (1.8-7.7) Lymphocytes # (Auto) 1.7 x10^3/uL (1.0-4.8) Monocytes # (Auto) 0.7 x10^3/uL (0.0-1.1) Eosinophils # (Auto) 0.1 x10^3/uL (0.0-0.7) Basophils # (Auto) 0.0 x10^3/uL (0.0-0.2) Sodium Level 142 mmol/L (136-145) Potassium Level 3.7 mmol/L (3.5-5.1) Chloride Level 103 mmol/L (98-107) Carbon Dioxide Level 26 mmol/L (21-32) Anion Gap 13 (6-14) Blood Urea Nitrogen 9 mg/dL (8-26) Creatinine 0.9 mg/dL (0.7-1.3) Estimated GFR (Cockcroft-Gault) 125.4 Glucose Level 93 mg/dL (70-99) Calcium Level 9.3 mg/dL (8.5-10.1) Laboratory Tests 08/15/19 22:30 08/16/19 04:04 Laboratory Tests 08/16/19 04:04 Medications: Current Medications Medications (Trade) Dose Ordered Sig/Gil Start Time Stop Time Status Last Admin Dose Admin Acetaminophen (Tylenol) 650 mg PRN Q4HRS PRN 08/14/19 22:00 08/14/19 22:11 650 MG Docusate Sodium (Colace) 100 mg PRN BID PRN 08/14/19 22:00 08/15/19 07:42 100 MG Fluoxetine HCl (PROzac) 40 mg DAILY 08/14/19 15:15 08/16/19 08:40 40 MG Haloperidol (Haldol) 10 mg BID 08/14/19 21:00 08/16/19 08:43 10 MG Lidocaine HCl (Lidocaine Pf 2% Vial) 5 ml STK-MED ONCE 08/15/19 09:45 08/15/19 09:45 DC Magnesium Citrate (Citroma) 296 ml 1X ONCE 08/15/19 15:00 08/15/19 15:04 DC 08/15/19 15:16 296 ML Metoclopramide HCl (Reglan Vial) 5 mg QIDACHS 08/16/19 16:30 Ondansetron HCl (Zofran) 4 mg PRN Q4HRS PRN 08/14/19 22:00 08/15/19 21:56 4 MG Pantoprazole Sodium (PROTONIX VIAL for IV PUSH) 40 mg BIDAC 08/15/19 16:30 08/16/19 08:40 40 MG Propofol 20 ml @ As Directed STK-MED ONCE 08/15/19 09:45 08/15/19 09:45 DC Ringer's Solution 1,000 ml @ 75 mls/hr 1X ONCE 08/15/19 09:15 08/15/19 22:34 DC 08/15/19 09:17 75 MLS/HR Sodium Chloride 1,000 ml @ 75 mls/hr [id number] 08/15/19 16:45 08/16/19 05:26 75 MLS/HR Physical Exam: Mental Status Exam: -Bangladeshi gentleman appears his stated age, fairly groomed, fairly nourished, dressed in hospital gown. He is cooperative and interactive. He is fully alert and oriented. Speech is with regular rate and rhythm normal tone and volume. Thought process is logical and goal-directed. Denies auditory or visual hallucinations. Denies suicidal or homicidal thoughts intent or plan. No abnormal delusions noted. Mood is good affect is euthymic. Insight is fair, judgment is good, and concentration is improving. Memory is intact. Impulse control is good. Physical Exam: Refer to Physician's note. PAPER BUNDLER: No focal deficit MSK: No EPS, TDK, or abnormal involuntary movements Diagnosis: 1bipolar mood disorder I, most recent episode depressed with psychotic features 2psychosis 3generalized anxiety disorder. 4PTSD Assessment: -Bangladeshi gentleman with history of bipolar mood disorder, presently struggling with depression. He was restarted on Haldol 10 mg twice a day for hallucinations and Prozac was increased to 40 mg daily for ongoing depression. He has been put down his medications today. Overall, with respect to mental health, he is reporting improvement in mood and hallucinations. Recommending to continue medications as prescribed. Plan: 1continue Prozac 40 mg daily for depression. 2continue Haldol 10 mg twice a day for psychosis. 3psychoeducation provided. 4supportive psychotherapy provided. 5in case of discharge, patient to be continued on Prozac and Haldol as is. 6requesting outpatient provider to consider Haldol Decanoate for better medication compliance. Patient is in agreement. Please call Dr. Gordillo at [phone] with any concern. ROSETTA GORDILLO MD Aug 16, 2019 13:02
--- NOTE | 2019-08-16 13:40 | RAD ---
AP abdomen radiograph 08/16/2019 CLINICAL HISTORY: Foreign body follow-up. An AP portable supine digital radiograph of the abdomen/pelvis was obtained. The upper abdomen to include the lung bases are not included on this radiograph. The small screw within the proximal sigmoid colon seen on the previous study is not visualized and has presumably been passed. A screw is seen in the region of the distal sigmoid colon/proximal rectum. A screw is seen overlying the expected location of the ascending colon. The abdominal bowel gas pattern is nonobstructive. No radiopaque calculus is seen. The osseous structures are unchanged. IMPRESSION: One of the screws appears to have been passed as discussed above. A screw remains in the region of the distal sigmoid colon/rectum. An additional screw is seen in the region of the ascending colon. Electronically signed by: Hunter Thomas MD (08/16/2019 1:37 PM) [id number]
[2019-08-16 15:00] VITALS: BP 118/69
[2019-08-16] MEDS: METOCLOPRAMIDE HCL 10 MG/2 ML VIAL. IVP SCH ×2 (16:26→22:19)
[2019-08-16 19:00] VITALS: BP 131/82
[2019-08-16] MEDS ORDERED: HALOPERIDOL LACTATE 5 MG/ML VIAL. IVP PRN (19:15)
[2019-08-16 22:16] VITALS: BP 103/61
[2019-08-17] MEDS: IV NORMAL SALINE 1000ML BAG 1,000 ML IV SCH ×2 (00:20→10:10)
[2019-08-17 02:40] VITALS: BP 113/66
[2019-08-17 06:59] VITALS: BP 130/73
[2019-08-17] MEDS: HALOPERIDOL 5 MG TABLET. PO SCH (10:08)
[2019-08-17] MEDS: FLUoxetine HCL 20 MG CAPSULE PO SCH (10:09)
[2019-08-17] MEDS: METOCLOPRAMIDE HCL 10 MG/2 ML VIAL. IVP SCH ×3 (10:09→16:30)
[2019-08-17] MEDS: PANTOPRAZOLE IV PUSH 40 MG VIAL. IVP SCH ×2 (10:10→16:30)
[2019-08-17 10:50] VITALS: BP 118/64
[2019-08-17] MEDS ORDERED: FLUO20CA20 PO (11:53)
[2019-08-17] MEDS ORDERED: HALO5TAB PO (11:53)
--- NOTE | 2019-08-17 12:01 | PDOC ---
Objective: Vital Signs: Vital Signs Date Time Temp Pulse Resp B/P (MAP) Pulse Ox O2 Delivery O2 Flow Rate FiO2 08/17/19 10:50 98.0 108 16 118/64 (82) 97 Room Air 98.0 PE: in shower A/P: Swallowed foreign body Vomiting Constipation -- D/w Dr. Orozco - improved w/ Reglan though not ideal long-term w/ psych meds. Suspect gastroparesis. Plans to DC today if continues to tolerate PO. Hemodynamically unstable?: No Is patient in severe pain?: No Is NPO status required?: No EDUARDO PARKER Aug 17, 2019 12:01
--- NOTE | 2019-08-17 14:27 | PDOC ---
F/U PHYSCH PROG NOTE Subjective: -[place] gentleman seen for routine follow-up of consult. Appears cooperative and interactive. States, last night he was hallucinating and received IM shot of Haldol. States, hallucinations are much better now presently denies any auditory or visual hallucinations. Would is reportedly okay. He is anxious about his GI condition. States, he is tolerating pills but not tolerating food. Regarding suicidal ideation, spotted by gesture as wake up and down, denies intent or well formulated plan. tolerating medications. No evidence of marina or hypomania. Objective: Vital Signs: Vital Signs Date Time Temp Pulse Resp B/P (MAP) Pulse Ox O2 Delivery O2 Flow Rate FiO2 08/17/19 10:50 98.0 108 16 118/64 (82) 97 Room Air 98.0 Medications: Current Medications Medications (Trade) Dose Ordered Sig/Gil Start Time Stop Time Status Last Admin Dose Admin Acetaminophen (Tylenol) 650 mg PRN Q4HRS PRN 08/14/19 22:00 08/14/19 22:11 650 MG Docusate Sodium (Colace) 100 mg PRN BID PRN 08/14/19 22:00 08/15/19 07:42 100 MG Fluoxetine HCl (PROzac) 40 mg DAILY 08/14/19 15:15 08/17/19 10:09 40 MG Haloperidol (Haldol) 10 mg BID 08/14/19 21:00 08/17/19 10:08 10 MG Haloperidol Lactate (Haldol Inj) 5 mg PRN Q8HRS PRN 08/16/19 19:15 08/16/19 19:23 5 MG Lidocaine HCl (Lidocaine Pf 2% Vial) 5 ml STK-MED ONCE 08/15/19 09:45 08/15/19 09:45 DC Magnesium Citrate (Citroma) 296 ml 1X ONCE 08/15/19 15:00 08/15/19 15:04 DC 08/15/19 15:16 296 ML Metoclopramide HCl (Reglan Vial) 5 mg QIDACHS 08/16/19 16:30 08/17/19 10:09 5 MG Ondansetron HCl (Zofran) 4 mg PRN Q4HRS PRN 08/14/19 22:00 08/15/19 21:56 4 MG Pantoprazole Sodium (PROTONIX VIAL for IV PUSH) 40 mg BIDAC 08/15/19 16:30 08/17/19 10:10 40 MG Propofol 20 ml @ As Directed STK-MED ONCE 08/15/19 09:45 08/15/19 09:45 DC Ringer's Solution 1,000 ml @ 75 mls/hr 1X ONCE 08/15/19 09:15 08/15/19 22:34 DC 08/15/19 09:17 75 MLS/HR Sodium Chloride 1,000 ml @ 75 mls/hr [id number] 08/15/19 16:45 08/17/19 10:10 75 MLS/HR Physical Exam: Mental Status Exam: He is an -[place] gentleman, appears his stated age, fairly nourished, fairly groomed, dressed in hospital gown. He is cooperative and interactive. He is alert and oriented. Speech is with regular rate and rhythm tone and volume. Thought processes logical and goal-directed. He denies auditory or visual hallucinations. He active suicidal or homicidal thoughts at this point. However states the suicidal ideation, intermittent without any intent or plan. No abnormal perception noted. Mood is fine, affect is euthymic. Insight is fair, judgment is fair, impulse control is fair. Concentration is fair. Memory is intact. Physical Exam: Refer to Physician's note. MEDICAL ARTIST: No focal deficit MSK: No EPS, TDK, or abnormal involuntary movements Diagnosis: 1bipolar mood disorder I, most recent episode depressed with psychotic features 2psychosis 3generalized anxiety disorder. 4PTSD Assessment: -[place] gentleman with history of bipolar mood disorder, presently struggling with depression. He was restarted on Haldol 10 mg twice a day for hallucinations and Prozac was increased to 40 mg daily for ongoing depression. He is tolerating medications and responding to current regimen. He had an episode of hallucinations last night which got under control with Haldol IM. Given history of constipation, would not recommend to increase Haldol due to anticholinergic properties which may worsen constipation. Additionally he is on metoclopramide and anti-cholinergic medication. Plan: 1continue medications as prescribed. 2psychoeducation provided. 3supportive psychotherapy provided. 4continue constant observation for safety. 5would recommend outpatient follow-up. With mental health provider at [facility]. 6-in case of discharge, recommending for shelter authorities to keep patient in suicidal watch. ROSETTA MILLER MD Aug 17, 2019 14:27
--- NOTE | 2019-08-17 14:45 | PDOC3 ---
Discharge Summary Visit Information Date of Admission: Aug 12, 2019 Date of Discharge: Aug 17, 2019 Final Diagnosis Problems Medical Problems: (1) Nausea and vomiting Status: Acute Brief Hospital Course Allergies Allergies Coded Allergies Type Severity Reaction Last Updated Verified adhesive Allergy Intermediate Rash 08/15/19 Yes Vital Signs GENERAL: No apparent distress. Alert and oriented. HEENT: Head normocephalic, atraumatic. NECK: Supple LUNGS: Clear to auscultation. HEART: RRR, S1, S2 present, pulses intact ABDOMEN: Soft, positive bowel sounds. EXTREMITIES: No cyanosis or edema. NEUROLOGIC: Normal speech, normal tone PSYCHIATRIC: Normal affect, normal mood. SKIN: No ulceration. Vital Signs Date Time Temp Pulse Resp B/P (MAP) Pulse Ox O2 Delivery O2 Flow Rate FiO2 08/17/19 10:50 98.0 108 16 118/64 (82) 97 Room Air 98.0 Lab Results Laboratory Tests Test 08/15/19 22:30 08/16/19 04:04 White Blood Count 6.0 x10^3/uL (4.0-11.0) 6.9 x10^3/uL (4.0-11.0) Red Blood Count 5.47 x10^6/uL (4.30-5.70) 5.29 x10^6/uL (4.30-5.70) Hemoglobin 13.6 g/dL (13.0-17.5) 13.3 g/dL (13.0-17.5) Hematocrit 42.5 % (39.0-53.0) 41.2 % (39.0-53.0) Mean Corpuscular Volume 78 fL (79-100) 78 fL (79-100) Mean Corpuscular Hemoglobin 25 pg (25-35) 25 pg (25-35) Mean Corpuscular Hemoglobin Concent 32 g/dL (31-37) 32 g/dL (31-37) Red Cell Distribution Width 14.4 % (11.5-14.5) 14.5 % (11.5-14.5) Platelet Count 214 x10^3/uL (140-400) 213 x10^3/uL (140-400) Neutrophils (%) (Auto) 65 % (31-73) Lymphocytes (%) (Auto) 24 % (24-48) Monocytes (%) (Auto) 9 % (0-9) Eosinophils (%) (Auto) 2 % (0-3) Basophils (%) (Auto) 0 % (0-3) Neutrophils # (Auto) 4.5 x10^3/uL (1.8-7.7) Lymphocytes # (Auto) 1.7 x10^3/uL (1.0-4.8) Monocytes # (Auto) 0.7 x10^3/uL (0.0-1.1) Eosinophils # (Auto) 0.1 x10^3/uL (0.0-0.7) Basophils # (Auto) 0.0 x10^3/uL (0.0-0.2) Sodium Level 142 mmol/L (136-145) Potassium Level 3.7 mmol/L (3.5-5.1) Chloride Level 103 mmol/L (98-107) Carbon Dioxide Level 26 mmol/L (21-32) Anion Gap 13 (6-14) Blood Urea Nitrogen 9 mg/dL (8-26) Creatinine 0.9 mg/dL (0.7-1.3) Estimated GFR (Cockcroft-Gault) 125.4 Glucose Level 93 mg/dL (70-99) Calcium Level 9.3 mg/dL (8.5-10.1) Brief Hospital Course 24 y/o inmate who came to ED twice yesterday after swallowing three screws because he was trying to commit suicide, currently no plans to harm himself. review of imaging shows screws in small bowel. he reportedly vomited red blood yesterday in the ER, then want back to facility and ate. First says no recurrent vomiting or bleeding, then says vomited red blood again after eating yesterday. denies blood in stool. hx of GERD on PPI. had endoscopy at last year to remove pastic fork. no dysphagia, diarr, melena. no weight loss. no vomiting or bleeding since admission. ASSESSMENT Intentional foreign body ingestion Hematemesis, RESOLVED AT TIME OF DISCHARGE Microcyic Anemia GERD bipolar mood disorder I, most recent episode depressed with psychotic features psychosis generalized anxiety disorder. PTSD plan Screws in small bowel from initial xray, follow serial xrays. xray 2/: 3 screws remain present in the abdominal cavity and the patient could be constipated. There is no findings of bowel perforation. followed serial [facility] consulted. s/p EGD which was normal continue PPI therapy at discharge psych consulted and med adjustments made. haldol 10 mg PO BID, paroxitine 40 daily gen sx consulted- nio further recommendations Hem stable at 13 stable for dc back to assisted today Discharge Information Condition at Discharge: Stable Disposition/Orders: D/C to Another Facility Scheduled Docusate Sodium (Colace) 100 Mg Capsule, 1 CAP PO BID for constipation for 30 Days, #60 Ref 0 (Reported) Entered as Reported by: RICK MCKEON on 08/13/191652 Last Action: New Order on 08/13/191652 by RICK MCKEON Fluoxetine Hcl (Fluoxetine Hcl) 20 Mg Capsule, 40 MG PO DAILY for depression for 30 Days, #60 Ref 1 Prescribed by: VERONICA HANCOCK MD on 08/17/191152 Haloperidol (Haloperidol) 5 Mg Tablet, 10 MG PO BID for psych for 30 Days, #120 Ref 1 Prescribed by: VERONICA HANCOCK MD on 08/17/19 1153 Omeprazole (Omeprazole) 20 Mg Capsule., 1 CAP PO HS for gerd, #30 Ref 5 (Reported) Entered as Reported by: RICK MCKEON on 08/13/191652 Last Action: New Order on 08/13/191652 by RICK MCKEON Discontinued Medications Amoxicillin/Potassium Clav (Augmentin 875-125 Tablet) 1 Each Tablet, 1 TAB PO BID, #14 Prescribed by: JADE HOGUE APRN on 01/20/18 2327 Fluoxetine Hcl (Prozac) 20 Mg Capsule, 1 CAP PO HS for bipolar, #30 Ref 1 (Reported) Entered as Reported by: RICK MCKEON on 08/13/191652 Last Action: New Order on 08/13/191652 by RICK MCKEON Haloperidol (Haloperidol) 10 Mg Tablet, 1 TAB PO PRN BID PRN for AGITATION, #60 Ref 0 (Reported) Entered as Reported by: RICK MCKEON on 08/13/191652 Last Action: New Order on 08/13/191652 by RICK MCKEON Haloperidol Decanoate (Haloperidol Decanoate) 100 Mg/1 Ml Vial, 0.75 MG IM monthly for bipolar for 180 Days, (Reported) Entered as Reported by: RICK MCKEON on 08/13/191652 Last Action: New Order on 08/13/191652 by RICK MCKEON Hemodynamically unstable?: No Is patient in severe pain?: No Is NPO status required?: No VERONICA HANCOCK MD Aug 17, 2019 14:45
[2019-08-17 14:50] VITALS: BP 113/69
--- NOTE | 2019-08-17 17:41 | NUR ---
Discharge Note: CARRIE DIETZ [address] [place] [address] Discharge instructions and discharge home medications reviewed with Patient and a copy given. All questions have been answered and understanding verbalized. Discontinued lines and drains peripheral line. Patient [facility]
== END 2019-08-17 17:50 | disposition home or self-care (01) | DRG 394 ==
LOC: EEVIPCON 21:17 → ER 21:17 → ED HOLD 23:10 → 5 SOUTH 08-13 07:30
PROVIDERS: ADMIT Internal Medicine; ATTEND Internal Medicine
PROC: 0DJ08ZZ Inspection of Upper Intestinal Tract, Via Natural or Artificial Opening Endoscopic (ICD-10-PCS; principal; 2019-08-15 10:00)
DX: T18.3XXA Foreign body in small intestine, initial encounter (principal); R45.851 Suicidal ideations; K92.0 Hematemesis; F31.9 Bipolar disorder, unspecified; F20.9 Schizophrenia, unspecified; F90.9 Attention-deficit hyperactivity disorder, unspecified type; K21.9 Gastro-esophageal reflux disease without esophagitis; J45.909 Unspecified asthma, uncomplicated; F43.10 Post-traumatic stress disorder, unspecified; F41.1 Generalized anxiety disorder; T18.9XXA Foreign body of alimentary tract, part unspecified, initial encounter; D64.9 Anemia, unspecified; S00.03XA Contusion of scalp, initial encounter; K59.00 Constipation, unspecified; X83.8XXA Intentional self-harm by other specified means, initial encounter; Y93.89 Activity, other specified; Y92.89 Other specified places as the place of occurrence of the external cause; Y99.8 Other external cause status; Z91.048 Other nonmedicinal substance allergy status
CPT/HCPCS: 36415; 43235; 74018; 78264; 80048; 80053; 83540; 83550; 83690; 85025; 85027; 85610; 85730; A9541; C9113; J1630; J2001; J2405; J2704; J2765; J7030; J7120; G0378

== ENCOUNTER 2019-08-18 00:45 | Emergency (ER) | payer OTHER ==
[~2019-08-18] VITALS: Ht 180.3 cm; Wt 90.0 kg
[~2019-08-18 00:45] MED LIST changes: +DOCU-109 PO; +FLUO20CA16 PO; +FLUO20CA20 PO; +HALO100V IM; +HALO10TA PO; +HALO5TAB PO; +OMEP20CA16 PO
--- NOTE | 2019-08-18 01:08 | PHYS DOC ---
Past Medical History Past Medical History: Asthma, Bipolar, Depression, Schizophrenia, Other Additional Past Medical Histor: ADHD, Suicidal ideation, Hallucintations, PARANOID Past Surgical History: Other Additional Past Surgical Histo: EGD to remove spoon Smoking Status: Never Smoker Alcohol Use: None Drug Use: None Adult General Chief Complaint Chief Complaint: SWALLOWED FORIEGN BODY HPI HPI 24-year-old male underlying history anxiety, schizophrenia, depression presents to the emergency department after ingesting 4 screws. Patient states he has voices telling him to kill himself. Well has a 3.5 x 1 cm wound appreciated to his forehead, this was reopened today as patient had been banging his head against a window. Patient denies any loss of consciousness. Patient denies any blood thinning medications. Patient continues to have SI, he has no HI, appreciated auditory hallucinations, he has no visual hallucinations on examination. Nothing makes his symptoms worse, nothing makes his symptoms better. Review of Systems Review of Systems Constitutional: Denies fever or chills [] Respiratory: Denies cough or shortness of breath [] Cardiovascular: No additional information not addressed in HPI [] GI: + abdominal pain, no nausea, vomiting, bloody stools or diarrhea [] Musculoskeletal: Denies back pain or joint pain [] Integument: open wound to forehead Neurologic: Denies headache, focal weakness or sensory changes [] All other systems were reviewed and found to be within normal limits, except as documented in this note. Allergies Allergies Allergies Coded Allergies Type Severity Reaction Last Updated Verified adhesive Allergy Intermediate Rash 08/15/19 Yes Physical Exam Physical Exam Constitutional: Well developed, well nourished, no acute distress, non-toxic appearance. [] HENT: Normocephalic, 3.5 x 1 cm open wound to forehead, bilateral external ears normal, oropharynx moist, no oral exudates, nose normal. [] Eyes: PERRLA, EOMI, conjunctiva normal, no discharge. [] Neck: Normal range of motion, no tenderness, supple, no stridor. [] Cardiovascular:Heart rate regular rhythm, no murmur [] Lungs & Thorax: Bilateral breath sounds clear to auscultation [] Abdomen: Bowel sounds normal, soft, no tenderness, no masses, no pulsatile masses. [] Skin: Warm, dry, no erythema, no rash. [] Extremities: No tenderness, no edema. [] Neurologic: Alert and oriented X 3, no focal deficits noted. [] Psychologic: Affect normal, judgement normal, mood normal. [] Current Patient Data Vital Signs Vital Signs Date Time Temp Pulse Resp B/P (MAP) Pulse Ox O2 Delivery O2 Flow Rate FiO2 08/18/19 00:46 98.4 86 18 140/88 (105) 100 Room Air 98.4 EKG EKG [] Radiology/Procedures Radiology/Procedures [address] [address] IMAGING REPORT Signed PATIENT: CARRIE DIETZ MACCOUNT: [id number] : 1995 LOCATION: ER AGE: 24 SEX: M EXAM STATUS: REG ER ORD. PHYSICIAN: JUAN BRUNER MD REASON: head injury, banging head against window PROCEDURE: CT HEAD WO CONTRAST CT Head W/O Contrast: History: Head injury hitting head against window Comparison: none Axial images were obtained without contrast. The neff and white matter appears normal and symmetrical for the patients age. There is no mass effect, extraaxial fluid collections or hydrocephalus. There is no gross bleed. There is no focal loss of neff-white matter distinction to suggest acute ischemia, i.e. stroke. Impression: No acute findings. RS Compliance Statement: One or more of the following individualized dose reduction techniques were utilized for this examination: 1. Automated exposure control 2. Adjustment of the mA and/or kV according to patient size 3. Use of iterative reconstruction technique Electronically signed by: Freddy Desir III, MD (08/18/2019 1:33 AM) [id number] DICTATED and SIGNED BY: FREDDY DESIR III, MD DATE: 08/18/19 0133 [] [address] [address] IMAGING REPORT Signed PATIENT: CARRIE DIETZ MACCOUNT: [id number] : 1995 LOCATION: ER AGE: 24 SEX: M EXAM STATUS: REG ER ORD. PHYSICIAN: JUAN BRUNER MD REASON: swallowed 4 screws PROCEDURE: KUB One view lower abdomen pelvis HISTORY: Swallowed 4 screws Supine AP view lower and pelvis KUB There are 3 screws seen however there may be a fourth radiopacity in the left hemipelvis that is nonmetallic and could be neoplastic. There is no obvious free air on this supine view. IMPRESSION: 1. 3 screws identified. 2. Possible fourth radiopaque foreign body. Electronically signed by: Freddy Desir III, MD (08/18/2019 1:49 AM) [id number] DICTATED and SIGNED BY: FREDDY DESIR III, MD DATE: 08/18/19 0149 Course & Med Decision Making Course & Med Decision Making Pertinent Labs and Imaging studies reviewed. (See chart for details) []24-year-old male underlying history anxiety, schizophrenia, depression presents to the emergency department after ingesting 4 screws. Patient states he has voices telling him to kill himself. Well has a 3.5 x 1 cm wound appreciated to his forehead, this was reopened today as patient had been banging his head against a window. Patient denies any loss of consciousness. Patient denies any blood thinning medications. Patient continues to have SI, he has no HI, appreciated auditory hallucinations, he has no visual hallucinations on examination. Nothing makes his symptoms worse, nothing makes his symptoms better. KUB with screws present These screws appear to be in the intestinal tract with one in the rectum These should pass There is no evidence of perforation or free air at this time There is no change from previous comparison on 08/16/2019 Recommend dc back to facility Wound cleansed and dressed unable to suture tissue together Dragon Disclaimer Dragon Disclaimer This electronic medical record was generated, in whole or in part, using a voice recognition dictation system. Departure Departure Impression: Primary Impression: Swallowed foreign body Additional Impression: Head injury Disposition: 05 TRANSFER OTHER Condition: STABLE Referrals: NO PCP (PCP) Patient Instructions: Swallowed Foreign Body, Adult Additional Instructions: Return to the ER with severe abdominal pain/vomiting Xray shows evidence of 3 screws present, similar presentation to 08/16/2019 No evidence of obstruction or free-air CT head without findings of acute process Recommend follow up with Psychiatrist at facility Problem Qualifiers Primary Impression: Swallowed foreign body Encounter type: initial encounter Qualified Codes: T18.9XXA - Foreign body of alimentary tract, part unspecified, initial encounter Additional Impression: Head injury Encounter type: initial encounter Qualified Codes: S09.90XA - Unspecified injury of head, initial encounter JUAN BRUNER MD Aug 18, 2019 01:08
--- NOTE | 2019-08-18 01:35 | RAD ---
CT Head W/O Contrast: History: Head injury hitting head against window Comparison: none Axial images were obtained without contrast. The neff and white matter appears normal and symmetrical for the patients age. There is no mass effect, extraaxial fluid collections or hydrocephalus. There is no gross bleed. There is no focal loss of neff-white matter distinction to suggest acute ischemia, i.e. stroke. Impression: No acute findings. RS Compliance Statement: One or more of the following individualized dose reduction techniques were utilized for this examination: 1. Automated exposure control 2. Adjustment of the mA and/or kV according to patient size 3. Use of iterative reconstruction technique Electronically signed by: Mat Platt III, MD (08/18/2019 1:33 AM) [id number]
--- NOTE | 2019-08-18 01:52 | RAD ---
One view lower abdomen pelvis HISTORY: Swallowed 4 screws Supine AP view lower and pelvis KUB There are 3 screws seen however there may be a fourth radiopacity in the left hemipelvis that is nonmetallic and could be neoplastic. There is no obvious free air on this supine view. IMPRESSION: 1. 3 screws identified. 2. Possible fourth radiopaque foreign body. Electronically signed by: Mat Platt III, MD (08/18/2019 1:49 AM) [id number]
[2019-08-18 01:57] VITALS: BP 118/70
== END 2019-08-18 02:34 | disposition home or self-care (01) ==
LOC: EEVIPCON 00:45 → ER 00:45
DX: T18.8XXA Foreign body in other parts of alimentary tract, initial encounter (principal); S01.80XA Unspecified open wound of other part of head, initial encounter; R10.9 Unspecified abdominal pain; J45.909 Unspecified asthma, uncomplicated; F32.9 Major depressive disorder, single episode, unspecified; F20.9 Schizophrenia, unspecified; F90.9 Attention-deficit hyperactivity disorder, unspecified type; Z98.890 Other specified postprocedural states; Z91.048 Other nonmedicinal substance allergy status; X58.XXXA Exposure to other specified factors, initial encounter; Y93.89 Activity, other specified; Y92.89 Other specified places as the place of occurrence of the external cause; Y99.8 Other external cause status
CPT/HCPCS: 70450; 74018; 99285

== ENCOUNTER 2019-11-28 21:21 | Emergency (ER) | payer OTHER ==
[~2019-11-28] VITALS: Ht 180.3 cm; Wt 96.3 kg
--- NOTE | 2019-11-28 21:36 | PHYS DOC ---
Past Medical History Past Medical History: Asthma, Bipolar, Depression, Schizophrenia, Other Additional Past Medical Histor: ADHD, Suicidal ideation, Hallucintations, PARANOID Past Surgical History: Other Additional Past Surgical Histo: EGD to remove spoon Smoking Status: Never Smoker Alcohol Use: None Drug Use: None General Adult EDM: Chief Complaint: SUICDAL IDEATION HPI: HPI: Patient is a 24 year old male who presents with report of having swallowed a razor blade. Patient is not sure what time he swallowed it. He states that he swallowed it because the voices and has had told him to do so. He denies any abdominal pain. He denies any chest pain or shortness of breath. [] Review of Systems: Review of Systems: Constitutional: Denies fever or chills. [] Respiratory: Denies cough or shortness of breath. [] Cardiovascular: Denies chest pain or edema. [] GI: Denies abdominal pain, nausea, vomiting or diarrhea. [] Neurologic: Denies headache, focal weakness or sensory changes. [] A full 10 point review of systems has been reviewed and is otherwise negative. Heart Score: Risk Factors: Risk Factors: DM, Current or recent (<one month) smoker, HTN, HLP, family history of CAD, obesity. Risk Scores: Score 0 - 3: 2.5% MACE over next 6 weeks - Discharge Home Score 4 - 6: 20.3% MACE over next 6 weeks - Admit for Clinical Observation Score 7 - 10: 72.7% MACE over next 6 weeks - Early Invasive Strategies Allergies: Allergies: Allergies Coded Allergies Type Severity Reaction Last Updated Verified adhesive Allergy Intermediate Rash 08/15/19 Yes Physical Exam: PE: Constitutional: Well developed, well nourished, no acute distress, non-toxic appearance. [] HENT: Normocephalic, atraumatic, bilateral external ears normal, oropharynx moist, no oral exudates, nose normal. [] Eyes: PERRLA, EOMI, conjunctiva normal, no discharge. [] Neck: Normal range of motion, no tenderness, supple, no stridor. [] Cardiovascular: Regular rate and rhythm [] Lungs & Thorax: Bilateral breath sounds clear to auscultation [] Abdomen: Bowel sounds normal, soft, no tenderness. [] Skin: Warm, dry, no erythema, no rash. [] Extremities: No tenderness, no cyanosis, no clubbing, ROM intact, no edema. [] Neurologic: Alert and oriented X 3, no focal deficits noted. [] EKG: EKG: [] Radiology/Procedures: Radiology/Procedures: [] Course & Med Decision Making: Course & Med Decision Making Pertinent Labs and Imaging studies reviewed. (See chart for details) [] Dragon Disclaimer: Dragon Disclaimer: This electronic medical record was generated, in whole or in part, using a voice recognition dictation system. Departure Departure Impression: Primary Impression: Swallowed foreign body Qualified Codes: T18.9XXA - Foreign body of alimentary tract, part unspecified, initial encounter Disposition: HOME, SELF-CARE Condition: STABLE Referrals: NO PCP (PCP) Patient Instructions: Swallowed Foreign Body, Adult Additional Instructions: Return to emergency room for severe abdominal pain, rectal bleeding or vomiting blood. ALEKSEY ROCHA Jr. DO November 28, 2019 21:36
--- NOTE | 2019-11-28 22:26 | RAD ---
KUB History: Swallowed razor blade. Technique: Supine view of the abdomen. Comparison: August 2019. Findings: Metallic density projecting over the left upper abdomen the region of the stomach. Minimal small bowel gas. Air and stool scattered throughout the imaged colon. Moderate colonic stool burden. Imaged lung bases are unremarkable. Impression: 1. Metallic density projecting over the left upper abdomen likely within the stomach and related to known razor blade foreign body ingestion. 2. Nonobstructed bowel gas pattern. 3. Moderate colonic stool burden. Electronically signed by: Chencho Montilla DO (11/28/2019 10:23 PM) [facility]
[2019-11-28 23:00] VITALS: BP 135/72
== END 2019-11-28 23:20 | disposition home or self-care (01) ==
LOC: EEVIPCON 21:21 → ER 21:21
DX: T18.9XXA Foreign body of alimentary tract, part unspecified, initial encounter (principal); J45.909 Unspecified asthma, uncomplicated; F32.9 Major depressive disorder, single episode, unspecified; F20.9 Schizophrenia, unspecified; Z98.890 Other specified postprocedural states; Z88.8 Allergy status to other drugs, medicaments and biological substances; X58.XXXA Exposure to other specified factors, initial encounter; Y93.89 Activity, other specified; Y92.89 Other specified places as the place of occurrence of the external cause; Y99.8 Other external cause status
CPT/HCPCS: 74018; 99284